=== PATIENT | female | born 1990 | race Caucasian/White ===

== ENCOUNTER 2016-05-17 20:49 | Emergency (ER) | payer OTHER ==
[2016-05-17] MEDS ORDERED: ONDANSETRON 4MG/2ML VIAL (J2405) As Ordered ONE (22:18)
[2016-05-17] MEDS ORDERED: KETOROLAC 30 MG/ML VIAL (J1885) As Ordered ONE (22:18)
[2016-05-17 22:19] LABS: BASO % 0.4 % (0.0-1.0); EOS # 0.1 K/mm3 (0.0-0.50); EOS % 0.9 % (0.0-3.0); LARGE UNSTAINED CELL # 0.3 K/mm3 (0.0-0.4); LARGE UNSTAINED CELL % 2.3 % (0.0-4.0); LYMPH # 2.5 K/mm3 (1.5-6.5); LYMPH % 18.2 % (24.0-44.0); MEAN CORPUSCULAR HEMOGLOBIN 27.9 pg (27.0-33.0); MEAN CORPUSCULAR HGB CONC 33.8 g/dl (32.0-36.5); MEAN CORPUSCULAR VOLUME 82.8 fl (80.0-96.0); MONO # 0.6 K/mm3 (0.0-0.8); MONO % 4.5 % (0.0-5.0); NEUTROPHILS % 73.8 % (36.0-66.0); PLATELET COUNT, AUTOMATED 379 k/mm3 (150-450); RED CELL DISTRIBUTION WIDTH 12.9 % (11.5-14.5); WHITE BLOOD COUNT 13.6 K/mm3 (4.0-10.0)
[2016-05-17 22:47] LABS: ALBUMIN 3.8 GM/DL (3.2-5.2); ALKALINE PHOSPHATASE 120 U/L (45-117); ALT/SGPT 55 U/L (12-78); AMYLASE 98 U/L (25-115); ANION GAP 11 MEQ/L (8-16); AST/SGOT 73 U/L (15-37); BILIRUBIN,DIRECT 0.1 MG/DL (0.0-0.2); BILIRUBIN,TOTAL 0.5 MG/DL (0.2-1.0); BLOOD UREA NITROGEN 9 MG/DL (7-18); CALCIUM LEVEL 9.2 MG/DL (8.5-10.1); CARBON DIOXIDE LEVEL 24 MEQ/L (21-32); CHLORIDE LEVEL 107 MEQ/L (98-107); CREATININE FOR GFR 0.98 MG/DL (0.55-1.02); GLOMERULAR FILTRATION RATE > 60.0 (>60); GLUCOSE, FASTING 121 MG/DL (70-105); POTASSIUM SERUM 3.6 MEQ/L (3.5-5.1); SODIUM LEVEL 142 MEQ/L (136-145); TOTAL PROTEIN 7.6 GM/DL (6.4-8.2)
[2016-05-17] MEDS ORDERED: GASTROGRAFIN SOLUTION 30ML (Q9963) As Ordered ONE (22:55)
[2016-05-17 23:39] LABS: CONTROL LINE HCG INT CTR LINE PRESENT
[2016-05-18] MEDS ORDERED: ISOVUE-370 76% 100ML VIAL (Q9967) As Ordered ONE (00:22)
--- NOTE | 2016-05-18 01:30 | REPUSA ---
CLINICAL HISTORY: Abdominal pain. TECHNIQUE: Multiple axial, sagittal and coronal CT images were obtained through the abdomen and pelvi s after administration of oral and intravenous contrast material. COMMENTS: The liver is mildly enlarged with decreased attenuation without mass or defect. There is no intra or extrahepatic biliary ductal dilatation. The spleen is normal. The gallbladder is within normal limits . The pancreas is of normal contour and attenuation characteristics. There is no evidence of adrenal mass. 6 mm left renal nonobstructing calculus. Both kidneys demonstrate prompt and equal nephrograms. The kidneys are normal in size, shape and conf iguration. There is no evidence of renal or ureteral mass. No right renal or ureteral calculi are mireya ntified. There is no hydroureter or hydronephrosis. No evidence for appendicitis. There is no bowel wall thickening. No evidence for small or large disha l obstruction. There is no evidence of abdominal ascites or lymphadenopathy. Changes from prior gastr ic bypass surgery. There is no evidence of intrinsic or extrinsic bladder mass. There is no pelvic ascites or lymphadeno troy. Mild large bowel fecal stasis. Diffuse thickening of the wall of the bladder. Images of the lung bases show no evidence of pleural or parenchymal mass. There are no pleural effusi ons. The bony structures are free of lytic or blastic lesions. IMPRESSION: Mild large bowel fecal stasis. Prior gastric bypass surgery. Hepatomegaly with fatty liver infiltration. 6 mm left renal nonobstructing calculus. Diffuse thickening of the wall of the bladder. Underdistention versus mild cystitis. Thank you for your kind referral of this patient.
[2016-05-18] MEDS ORDERED: OXYCODONE/APAP 5MG/325MG(BULK) 1 TAB TAB As Ordered ONE (02:38)
--- NOTE | 2016-05-18 02:48 | EDDOCDS ---
Nurse's Notes [facility] Name: Nela Bearden Age: 26 yrs Sex: Female : 1990 Arrival Date: 05/17/2016 Time: 20:49 Bed 7 Private MD: NO PRIMARY PHYSICIAN, . Diagnosis: Upper abdominal pain, unspecified-with elevated lipase at 1405;Nausea with vomiting, unspecified;Calculus of kidney-left Presentation: 05/17 21:05 Presenting complaint: Patient states: "chest and abd pain" on and off since 1630 today. ttb Sharp pain radiates to mid back. Denies SOB. Adult Sepsis Screening: The patient does not have new or worsening altered mentation. Patient's respiratory rate is less than 22. Systolic blood pressure is greater than 100. Patient has a qSOFA score of 0- Negative Sepsis Screen. Suicide/Homicide risk assessment- the patient denies having any suicidal and/or homicidal ideations and does not present with any other emotional, behavioral or mental health complaints. Status: Patient is not a special services coordinator or dependent. Transition of care: patient was not received from another setting of care. 21:05 Acuity: CONOR Level 3 ttb 21:05 Method Of Arrival: Walkin/Carried/Asstd ttb Triage Assessment: 21:09 General: Appears in no apparent distress, well nourished, well groomed, Behavior is ttb appropriate for age, cooperative, pleasant. Pain: Location: mid abd/mid back Pain currently is 8 out of 10 on a pain scale. HIV screening NA for this visit Offered previously. Neurological: Level of Consciousness is awake, alert. EENT: Reports nasal congestion nasal discharge. Cardiovascular: Chest pain is denied. Respiratory: Airway is patent Respiratory effort is even, unlabored, Denies cough, shortness of breath. GI: Reports upper abd pain, nausea, vomiting. : Denies burning with urination, urinary frequency, urgency. Derm: Skin is normal. Injury Description: No known injury. 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 multiple vitamins daily (Last dose: 05/16/2016 20:00) 2. Tylenol 500 mg Oral tab as needed (Last dose: Unknown) 3. nyquil as needed (Last dose: 05/16/2016) 4. dayquil as needed (Last dose: 05/16/2016) 5. gas-ex as needed (Last dose: 05/17/2016 20:30) - PMHx: angioneurotic edema; Anxiety; Depression; - PSHx: right shoulder surgery; Gastric Bypass (October 23, 2015); - Social history: Smoking status: Patient states was never smoker of tobacco. Patient/guardian denies using alcohol, street drugs, No barriers to communication noted, The patient speaks fluent Burundian, Speaks appropriately for age. - Family history: Not pertinent. - : The pt / caregiver states he / she is not on anticoagulants. Home medication list is obtained from the patient. - Exposure Risk Screening:: None identified. Screenin/10 00:19 Screening information is obtained from the patient. Fall risk: No risks identified. af2 Assistance ADL's: requires no assistance with activities of daily living. Abuse/DV Screen: The patient / caregiver reports he/she is: not in a situation that causes fear, pain or injury. Nutritional screening: No deficits noted. Advance Directives: Currently, there is no health care proxy. home support is adequate. Assessment: 05/17 21:50 General: Appears distressed, Behavior is crying. General: Spoke to Bariatric surgeon at [facility] they Rec. that she go to [facility] for evaluation because that is where they did the surgery. Family members decided to bring her to [facility]. Pain: Location: epigastric area Pain currently is 10 out of 10 on a pain scale. Quality of pain is described as sharp, stabbing - worse pain of her life - has taken more than 15 Gas- X. Respiratory: Respiratory effort is even, labored, Respiratory pattern is regular. GI: Abdomen is obese, Bowel sounds hypoactive in right lower quadrant and left lower quadrant Abd is tender to palpation in right upper quadrant and left upper quadrant Reports normal BM. GI: Reports Pt reports that she had a normal amount of food today prior to onset of pain. Derm: Skin is normal. Injury Description: No known injury. 22:50 General: Appears in no apparent distress, Behavior is cooperative. Neurological: Level af2 of Consciousness is awake, alert. Respiratory: Airway is patent Respiratory effort is even, unlabored. Derm: Skin is normal. 05/18 00:16 General: Appears in no apparent distress, Behavior is cooperative. Neurological: Level af2 of Consciousness is awake, alert. Respiratory: Airway is patent Respiratory effort is even, unlabored. Derm: Skin is normal. 01:15 General: Appears in no apparent distress, Behavior is cooperative, pt requests nurse to af2 check piv, piv patent, dry, and intact. dressing change performed at pt request. . 02:22 General: Appears in no apparent distress, Behavior is cooperative. Neurological: Level af2 of Consciousness is awake, alert. Respiratory: Airway is patent Respiratory effort is even, unlabored. Derm: Skin is normal. Vital Signs: 05/17 20:52 BP 127 / 70; Pulse 106; Resp 20 S; Temp 96.2(T); Pulse Ox 96% on R/A; Weight 111.13 kg gr2 (R); Height 5 ft. 5 in. (165.10 cm) (R); Pain 8/10; 05/18 02:45 BP 116 / 68; Pulse 64; Resp 18 S; Temp 97.9(O); Pain 3/10; af2 05/17 20:52 Body Mass Index 40.77 (111.13 kg, 165.10 cm) gr2 Vitals: 05/17 20:52 Log In Time: May 17, 2016 at 20:52. gr2 ED Course: 20:51 Patient visited by Lloyd Ardon. gr2 20:51 Patient moved to Waiting gr2 20:52 NO PRIMARY PHYSICIAN, . is Private Physician. gr2 20:53 Patient visited by Lloyd Ardon. gr2 20:53 Patient moved to Pre RCE gr2 21:07 Triage Initiated ttb 21:30 Patient moved to Triage 3 ar3 21:56 Rita Lujan PA-C is PHCP. dt4 21:56 Wilmer Velazquez DO is Attending Physician. dt4 21:56 Patient visited by Rita Lujan PA-C. dt4 22:02 Cheli Rodriguez,YOMI is Primary Nurse. rs3 22:02 Patient moved to 7 rs3 22:16 Liver Profile Sent. kas2 22:16 Lipase Sent. kas2 22:16 CBC with Diff Sent. kas2 22:16 Basic Metabolic Profile Sent. kas2 22:16 Amylase Sent. kas2 22:16 CRP Sent. kas2 22:24 Patient visited by Deena Tao RN. kas2 22:24 Inserted saline lock: 20 gauge in left antecubital area and blood collected. The kas2 patient tolerated the procedure well. No procedures done that require assistance. 23:08 Patient visited by Cheli Rodriguez RN. af2 23:24 [facility] Payment Agreement was scanned into [employer] and attached to record. mpb 05/18 00:14 Patient visited by Cheli Rodriguez RN. af2 00:14 Patient visited by Monica Castillo, Crime Victim Specialist. jlm 00:21 Patient visited by Cheli Rodriguez RN. af2 01:23 Patient visited by Cheli Rodriguez RN. af2 01:26 Patient visited by Cheli Rodriguez RN. af2 01:43 CT ABD & PELVIS: IV and Oral Contrast Returned. EDMS 02:08 Nessa Johnson janitorial supervisor. ys2 02:23 Patient visited by Cheli Rodriguez RN. af2 02:45 Discontinued IV lock intact, bleeding controlled, pressure dressing applied, No af2 redness/swelling at site. 02:46 The patient / caregiver is instructed regarding the plan of care and ED course. af2 Administered Medications: 05/17 22:23 Drug: NS 0.9% 1000 ml [sodium chloride 0.9 % intravenous solution] Route: IV; Rate: kas2 bolus; Site: left antecubital; 22:24 Drug: Ondansetron 4 mg [ondansetron HCl 2 mg/mL intravenous solution (2 mL)] Route: kas2 IVP; Site: left antecubital; 22:24 Drug: ketorolac 30 mg [ketorolac 30 mg/mL (1 mL) injection solution (1 mL)] Route: IVP; kas2 Site: left antecubital; 23:00 Drug: Diatrizoate Meglumine & Sodium 10 ml [diatrizoate meglumine and diat.sodium 66 af2 %-10 % oral solution (10 mL)] Route: PO; 05/18 02:44 Drug: oxyCODONE-acetaminophen 4 pack 1 packets [oxycodone-acetaminophen 5 mg-325 mg af2 tablet (1 tabs)] {Co-Signature: nn1 (Freedom Valiente RN).} Route: PO; Point of Care Testing: Urine : 05/17 23:45 hCG Reading: Negative; Control Reading: Positive; [facility] Ranges: Order Results: Lab Order: Amylase; SPEC'M 05/17/16 22:08 Test: AMYLASE; Value: 98; Range: 25-115; Units: U/L; Status: F Lab Order: Basic Metabolic Profile; SPEC'M 05/17/16 22:08 Test: GLUCOSE, FASTING; Value: 121; Range: 70-105; Abnormal: Above high normal; Units: MG/DL; Status: F Test: BLOOD UREA NITROGEN; Value: 9; Range: 7-18; Units: MG/DL; Status: F Test: CREATININE FOR GFR; Value: 0.98; Range: 0.55-1.02; Units: MG/DL; Status: F Test: GLOMERULAR FILTRATION RATE; Value: > 60.0; Range: >60; Status: F Test: SODIUM LEVEL; Value: 142; Range: 136-145; Units: MEQ/L; Status: F Test: POTASSIUM SERUM; Value: 3.6; Range: 3.5-5.1; Units: MEQ/L; Status: F Test: CHLORIDE LEVEL; Value: 107; Range: 98-107; Units: MEQ/L; Status: F Test: CARBON DIOXIDE LEVEL; Value: 24; Range: 21-32; Units: MEQ/L; Status: F Test: ANION GAP; Value: 11; Range: 8-16; Units: MEQ/L; Status: F Test: CALCIUM LEVEL; Value: 9.2; Range: 8.5-10.1; Units: MG/DL; Status: F Test Note: ; Units are mL/min/1.73 m2 Chronic Kidney Disease Staging per NKF: Stage I & II GFR >=60 Normal to Mildly Decreased Stage III GFR 30-59 Moderately Decreased Stage IV GFR 15-29 Severely Decreased Stage V GFR <15 Very Little GFR Left ESRD GFR <15 on COMPLIANCE EXAMINER Lab Order: CBC with Diff; SPEC'M 05/17/16 22:08 Test: WHITE BLOOD COUNT; Value: 13.6; Range: 4.0-10.0; Abnormal: Above high normal; Units: K/mm3; Status: F Test: RED BLOOD COUNT; Value: 5.43; Range: 4.00-5.40; Abnormal: Above high normal; Units: M/mm3; Status: F Test: HEMOGLOBIN; Value: 15.2; Range: 12.0-16.0; Units: g/dl; Status: F Test: HEMATOCRIT; Value: 45.0; Range: 36.0-47.0; Units: %; Status: F Test: MEAN CORPUSCULAR VOLUME; Value: 82.8; Range: 80.0-96.0; Units: fl; Status: F Test: MEAN CORPUSCULAR HEMOGLOBIN; Value: 27.9; Range: 27.0-33.0; Units: pg; Status: F Test: MEAN CORPUSCULAR HGB CONC; Value: 33.8; Range: 32.0-36.5; Units: g/dl; Status: F Test: RED CELL DISTRIBUTION WIDTH; Value: 12.9; Range: 11.5-14.5; Units: %; Status: F Test: PLATELET COUNT, AUTOMATED; Value: 379; Range: 150-450; Units: k/mm3; Status: F Test: NEUTROPHILS %; Value: 73.8; Range: 36.0-66.0; Abnormal: Above high normal; Units: %; Status: F Test: LYMPH %; Value: 18.2; Range: 24.0-44.0; Abnormal: Below low normal; Units: %; Status: F Test: MONO %; Value: 4.5; Range: 0.0-5.0; Units: %; Status: F Test: EOS %; Value: 0.9; Range: 0.0-3.0; Units: %; Status: F Test: BASO %; Value: 0.4; Range: 0.0-1.0; Units: %; Status: F Test: LARGE UNSTAINED CELL %; Value: 2.3; Range: 0.0-4.0; Units: %; Status: F Test: NEUTROPHILS #; Value: 10.0; Range: 1.8-7.7; Abnormal: Above high normal; Units: K/mm3; Status: F Test: LYMPH #; Value: 2.5; Range: 1.5-6.5; Units: K/mm3; Status: F Test: MONO #; Value: 0.6; Range: 0.0-0.8; Units: K/mm3; Status: F Test: EOS #; Value: 0.1; Range: 0.0-0.50; Units: K/mm3; Status: F Test: BASO #; Value: 0.0; Range: 0.0-0.2; Units: K/mm3; Status: F Test: LARGE UNSTAINED CELL #; Value: 0.3; Range: 0.0-0.4; Units: K/mm3; Status: F Lab Order: Lipase; SPEC' 05/17/16 22:08 Test: LIPASE; Value: 1405; Range: 73-393; Abnormal: Above high normal; Units: U/L; Status: F Lab Order: Liver Profile; SPEC'M 05/17/16 22:08 Test: AST/SGOT; Value: 73; Range: 15-37; Abnormal: Above high normal; Units: U/L; Status: F Test: ALT/SGPT; Value: 55; Range: 12-78; Units: U/L; Status: F Test: ALKALINE PHOSPHATASE; Value: 120; Range: 45-117; Abnormal: Above high normal; Units: U/L; Status: F Test: BILIRUBIN,TOTAL; Value: 0.5; Range: 0.2-1.0; Units: MG/DL; Status: F Test: BILIRUBIN,DIRECT; Value: 0.1; Range: 0.0-0.2; Units: MG/DL; Status: F Test: TOTAL PROTEIN; Value: 7.6; Range: 6.4-8.2; Units: GM/DL; Status: F Test: ALBUMIN; Value: 3.8; Range: 3.2-5.2; Units: GM/DL; Status: F Test: ALBUMIN/GLOBULIN RATIO; Value: 1.00; Range: 1.00-1.93; Status: F Lab Order: Urinalysis; SPEC'M 05/17/16 23:31 Test: APPEARANCE, URINE; Value: CLOUDY; Range: CLEAR; Abnormal: Above high normal; Status: F Test: COLOR, URINE; Value: CHELI; Range: YELLOW; Status: F Test: PH,URINE; Value: 5.0; Range: 5.0-9.0; Units: UNITS; Status: F Test: SPECIFIC GRAVITY URINE AUTO; Value: 1.028; Range: 1.002-1.035; Status: F Test: PROTEIN, URINE AUTO; Value: 1+; Range: NEGATIVE; Abnormal: Above high normal; Units: mg/dL; Status: F Test: GLUCOSE, URINE (UA) AUTO; Value: NEGATIVE; Range: NEGATIVE; Units: mg/dL; Status: F Test: KETONE, URINE AUTO; Value: 1+; Range: NEGATIVE; Abnormal: Above high normal; Units: mg/dL; Status: F Test: UROBILINOGEN, URINE AUTO; Value: 2.0; Range: 0.0-2.0; Abnormal: Above high normal; Units: mg/dL; Status: F Test: BILIRUBIN, URINE AUTO; Value: NEGATIVE; Range: NEGATIVE; Status: F Test: NITRITE, URINE AUTO; Value: NEGATIVE; Range: NEGATIVE; Status: F Test: LEUKOCYTE ESTERASE, URINE AUTO; Value: NEGATIVE; Range: NEGATIVE; Status: F Test: BLOOD, URINE BLOOD; Value: NEGATIVE; Range: NEGATIVE; Status: F Test: WBC, URINE AUTO; Value: 4; Range: 0-3; Abnormal: Above high normal; Units: /HPF; Status: F Test: RBC, URINE AUTO; Value: 2; Range: 0-3; Units: /HPF; Status: F Test: BACTERIA, URINE AUTO; Value: 1+; Range: NEGATIVE; Abnormal: Above high normal; Status: F Test: SQUAMOUS EPITHELIAL CELL UR AU; Value: 9; Range: 0-6; Units: /HPF; Status: F Test: MUCUS, URINE; Value: LARGE; Range: NEGATIVE; Status: F Test: HYALINE CAST, URINE AUTO; Value: 0; Range: 0-1; Units: /LPF; Status: F Lab Order: CRP; SPEC'M 05/17/16 22:08 Test: C REACTIVE PROTEIN QUANTITATIV; Value: 0.94; Range: 0.00-0.30; Abnormal: Above high normal; Units: MG/DL; Status: F Lab Order: HCG, QUALITATIVE; SPEC'M 05/17/16 22:08 Test: HCG, SERUM QUALITATIVE; Value: NEGATIVE; Range: NEGATIVE; Status: F Radiology Order: CT ABD & PELVIS: IV and Oral Contrast Test: CT ABD & PELVIS: IV and Oral Contrast REASON FOR EXAMINATION: RUQ, LUQ, EPIGASTRIC PAIN; ; CLINICAL HISTORY: Abdominal pain.; TECHNIQUE: Multiple axial, sagittal and coronal CT images were obtained through the abdomen and pelvi; s after administration of oral and intravenous contrast material.; COMMENTS:; The liver is mildly enlarged with decreased attenuation without mass or defect. There is no intra or; extrahepatic biliary ductal dilatation. The spleen is normal. The gallbladder is within normal limits; . The pancreas is of normal contour and attenuation characteristics. There is no evidence of adrenal; mass.; 6 mm left renal nonobstructing calculus.; Both kidneys demonstrate prompt and equal nephrograms. The kidneys are normal in size, shape and conf; iguration. There is no evidence of renal or ureteral mass. No right renal or ureteral calculi are mireya; ntified. There is no hydroureter or hydronephrosis.; No evidence for appendicitis. There is no bowel wall thickening. No evidence for small or large disha; l obstruction. There is no evidence of abdominal ascites or lymphadenopathy. Changes from prior gastr; ic bypass surgery.; There is no evidence of intrinsic or extrinsic bladder mass. There is no pelvic ascites or lymphadeno; troy. Mild large bowel fecal stasis. Diffuse thickening of the wall of the bladder.; Images of the lung bases show no evidence of pleural or parenchymal mass. There are no pleural effusi; ons.; The bony structures are free of lytic or blastic lesions.; IMPRESSION:; Mild large bowel fecal stasis.; Prior gastric bypass surgery.; Hepatomegaly with fatty liver infiltration.; 6 mm left renal nonobstructing calculus.; Diffuse thickening of the wall of the bladder. Underdistention versus mild cystitis.; Thank you for your kind referral of this patient.; ; Outcome: 05/18 02:19 Discharge ordered by Provider. dt4 02:46 Discharge Assessment: Patient awake, alert and oriented x 3. No cognitive and/or af2 functional deficits noted. Patient verbalized understanding of disposition instructions. patient administered narcotics - yes. Pt provided with safe discharge. The following High Risk Discharge criteria are identified: None. Discharged to home ambulatory, with family. Condition: stable. Discharge instructions given to patient, Instructed on discharge instructions, follow up and referral plans. medication usage, no driving heavy equipment, no drinking with medication, Demonstrated understanding of instructions, medications, Pt was receptive of discharge instructions/ teaching. CT Study completed. Property :Personal belongings accompany Pt. 02:46 Patient left the ED. af2 Signatures: Dispatcher [employer] EDKelli JamesRN RN lf1 Ashlie LockhartRN RN rs3 Leda Neville, INDUSTRIAL CAFETERIA MANAGER INDUSTRIAL CAFETERIA MANAGER ar3 Sita Rene RN RN ttb Lloyd Ardon gr2 Monica Castillo, Crime Victim Specialist Unit Rita De Souza PA-C PAMaulik dt4 Cheli RodriguezRN RN af2 Nessa Johnson 2 Dav Martin, Reg Reg Deena MccauleyRN RN kas2 Freedom Valiente RN nn1 Corrections: (The following items were deleted from the chart) 00:14 00:11 Urine : hCG=Negative, Control=Positive. pepe cantu MTDD
--- NOTE | 2016-05-18 02:49 | EDDOCDS ---
Physician Documentation [facility] Name: Nela Bearden Age: 26 yrs Sex: Female : 1990 Arrival Date: 05/17/2016 Time: 20:49 Bed 7 Private MD: NO PRIMARY PHYSICIAN, . Disposition: 05/18/16 02:19 Discharged to Home/Self Care. Impression: Upper abdominal pain, unspecified - with elevated lipase at 1405, Nausea with vomiting, unspecified, Calculus of kidney - left. - Condition is Stable. - Discharge Instructions: Abdominal Pain, Adult, Clear Liquid Diet, Nausea and Vomiting, Acute Pancreatitis, [id number]. - Prescriptions for Percocet 5- 325 mg Oral Tablet - take 1 tablet by ORAL route every 6 hours As needed MDD: 4 tabs; 15 tablet. ZOFRAN ODT 4 mg Oral - dissolve 1 tablet by ORAL route 3-4 times daily As needed do not chew, do not swallow whole; 20 tablet. - Medication Reconciliation, Local Pharmacy Hours form. - Follow up: Emergency Department; When: As needed; Reason: Worsening of conditions. Follow up: Private Physician; When: 2 - 3 days; Reason: Wound/Symptom Recheck, Recheck today's complaints, Continuance of care. - Problem is new. - Symptoms have improved. - Notes: PLEASE RETURN TO THE HOSPITAL ON TUESDAY OR TUESDAY TO HAVE YOUR LABS DRAWN AGAIN. GO TO THE OUTPATIENT LAB WITH THE LAB SLIP TO HAVE THESE REDRAWN. ANY WORSENING OF SYMPTOMS, PLEASE RETURN TO THE ER. CLEAR LIQUID DIET FOR THE NEXT TWO DAYS. Historical: - Allergies: NSAIDS - gastric bypass; - Home Meds: 1. multiple vitamins daily (Last dose: 05/16/2016 20:00) 2. Tylenol 500 mg Oral tab as needed (Last dose: Unknown) 3. nyquil as needed (Last dose: 05/16/2016) 4. dayquil as needed (Last dose: 05/16/2016) 5. gas-ex as needed (Last dose: 05/17/2016 20:30) - PMHx: angioneurotic edema; Anxiety; Depression; - PSHx: right shoulder surgery; Gastric Bypass (October 23, 2015); - Social history: Smoking status: Patient states was never smoker of tobacco. Patient/guardian denies using alcohol, street drugs, No barriers to communication noted, The patient speaks fluent Greek, Speaks appropriately for age. - Family history: Not pertinent. - : The pt / caregiver states he / she is not on anticoagulants. Home medication list is obtained from the patient. - Exposure Risk Screening:: None identified. PRODUCTION EDITOR: 05/17 21:09 LMP 04/16/2016 ttb Vital Signs: 20:52 BP 127 / 70; Pulse 106; Resp 20 S; Temp 96.2(T); Pulse Ox 96% on R/A; Weight 111.13 kg gr2 / 245 lbs (R); Height 5 ft. 5 in. (165.10 cm) (R); Pain 12/16; 05/18 02:45 BP 116 / 68; Pulse 64; Resp 18 S; Temp 97.9(O); Pain 3; af2 05/17 20:52 Body Mass Index 40.77 (111.13 kg, 165.10 cm) gr2 MDM: 05/17 22:04 NS 0.9% 1000 ml IV at bolus once ordered. dt4 22:04 Ondansetron 4 mg IVP once ordered. dt4 22:04 ketorolac 30 mg IVP once ordered. dt4 22:04 IV Saline Lock ordered. dt4 22:04 Undress patient appropriately for examination ordered. dt4 22:05 Amylase Ordered. EDMS 22:05 Basic Metabolic Profile Ordered. EDMS 22:05 CBC with Diff Ordered. EDMS 22:05 Lipase Ordered. EDMS 22:05 Liver Profile Ordered. EDMS 22:05 Urinalysis Ordered. EDMS 22:05 CRP Ordered. EDMS 22:06 Urine Culture Ordered. EDMS 22:06 CT ABD & PELVIS: IV and Oral Contrast Ordered. EDMS 22:06 NOTHING BY MOUTH+DIET ordered. EDMS 23:00 Diatrizoate Meglumine & Sodium Liquid 10 ml PO once; mix in 290cc of water; 1st cup at af2 2300 and 2nd cup at 2330 ordered. 23:13 Financial registration complete. [facility] 23:24 [facility] [place] Agreement was scanned into [employer] and attached to record. mpb 23:28 Basic Metabolic Profile Reviewed. dt4 23:28 CBC with Diff Reviewed. dt4 23:28 Lipase Reviewed. dt4 23:28 Liver Profile Reviewed. dt4 23:28 CRP Reviewed. dt4 23:28 Amylase Reviewed. dt4 05/18 01:54 Basic Metabolic Profile Reviewed. dt4 :54 Lipase Reviewed. dt08 07:54 Liver Profile Reviewed. dt08 07:54 Urinalysis Reviewed. dt08 07:54 CRP Reviewed. dt08 07:54 Amylase Reviewed. dt08 07:54 HCG, QUALITATIVE Reviewed. dt08 07:54 CT ABD & PELVIS: IV and Oral Contrast Reviewed. dt4 02:06 Fluid Challenge ordered. dt4 02:06 oxyCODONE-acetaminophen 4 pack 5 mg-325 mg 1 packets PO once; Dispense with pt, take as dt4 per instruction on package ordered. Point of Care Testing: Urine : 05/17 23:45 hCG Reading: Negative; Control Reading: Positive; jlm Ranges: Administered Medications: 22:23 Drug: NS 0.9% 1000 ml [sodium chloride 0.9 % intravenous solution] Route: IV; Rate: kas2 bolus; Site: left antecubital; 22:24 Drug: Ondansetron 4 mg [ondansetron HCl 2 mg/mL intravenous solution (2 mL)] Route: kas2 IVP; Site: left antecubital; 22:24 Drug: ketorolac 30 mg [ketorolac 30 mg/mL (1 mL) injection solution (1 mL)] Route: IVP; kas2 Site: left antecubital; 23:00 Drug: Diatrizoate Meglumine & Sodium 10 ml [diatrizoate meglumine and diat.sodium 66 af2 %-10 % oral solution (10 mL)] Route: PO; 05/18 02:44 Drug: oxyCODONE-acetaminophen 4 pack 1 packets [oxycodone-acetaminophen 5 mg-325 mg af2 tablet (1 tabs)] {Co-Signature: nn1 (Freedom Valiente RN).} Route: PO; Signatures: Dispatcher [employer] Sita Albarado RN RN melinab Rita Lujan PA-C PA-C dt4 Hallie Cormier Amber, RN RN af2 Dav Martin, Deena Cedeno RN kas2 Freedom Valiente RN nn1 The chart was reviewed and I authenticate all verbal orders and agree with the evaluation and treatment provided.Corrections: (The following items were deleted from the chart) 05/17 23:28 22:05 UCG by Nursing ordered. dt4 dt4 : 23:29 HCG, QUALITATIVE+LAB ordered. EDMS EDMS Attachments: 23:24 COUNTS INCLUDE 234 BEDS AT THE [facility] Payment Agreement mpb MTDD
--- NOTE | 2016-05-20 03:48 | EDDOCDS ---
Physician Documentation [facility] Name: Nela Bearden Age: 26 yrs Sex: Female : 1990 Arrival Date: 05/17/2016 Time: 20:49 Bed 7 Private MD: NO PRIMARY PHYSICIAN, . Disposition: 05/18/16 02:19 Discharged to Home/Self Care. Impression: Upper abdominal pain, unspecified - with elevated lipase at 1405, Nausea with vomiting, unspecified, Calculus of kidney - left. - Condition is Stable. - Discharge Instructions: Abdominal Pain, Adult, Clear Liquid Diet, Nausea and Vomiting, Acute Pancreatitis, [id number]. - Prescriptions for Percocet 5- 325 mg Oral Tablet - take 1 tablet by ORAL route every 6 hours As needed MDD: 4 tabs; 15 tablet. ZOFRAN ODT 4 mg Oral - dissolve 1 tablet by ORAL route 3-4 times daily As needed do not chew, do not swallow whole; 20 tablet. - Medication Reconciliation, Local Pharmacy Hours form. - Follow up: Emergency Department; When: As needed; Reason: Worsening of conditions. Follow up: Private Physician; When: 2 - 3 days; Reason: Wound/Symptom Recheck, Recheck today's complaints, Continuance of care. - Problem is new. - Symptoms have improved. - Notes: PLEASE RETURN TO THE HOSPITAL ON TUESDAY OR TUESDAY TO HAVE YOUR LABS DRAWN AGAIN. GO TO THE OUTPATIENT LAB WITH THE LAB SLIP TO HAVE THESE REDRAWN. ANY WORSENING OF SYMPTOMS, PLEASE RETURN TO THE ER. CLEAR LIQUID DIET FOR THE NEXT TWO DAYS. Historical: - Allergies: NSAIDS - gastric bypass; - Home Meds: 1. multiple vitamins daily (Last dose: 05/16/2016 20:00) 2. Tylenol 500 mg Oral tab as needed (Last dose: Unknown) 3. nyquil as needed (Last dose: 05/16/2016) 4. dayquil as needed (Last dose: 05/16/2016) 5. gas-ex as needed (Last dose: 05/17/2016 20:30) - PMHx: angioneurotic edema; Anxiety; Depression; - PSHx: right shoulder surgery; Gastric Bypass (October 23, 2015); - Social history: Smoking status: Patient states was never smoker of tobacco. Patient/guardian denies using alcohol, street drugs, No barriers to communication noted, The patient speaks fluent Turkmen, Speaks appropriately for age. - Family history: Not pertinent. - : The pt / caregiver states he / she is not on anticoagulants. Home medication list is obtained from the patient. - Exposure Risk Screening:: None identified. 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 5 in. (165.10 cm) (R); Pain 12/16; 05/18 02:45 BP 116 / 68; Pulse 64; Resp 18 S; Temp 97.9(O); Pain 3; af2 05/17 20:52 Body Mass Index 40.77 (111.13 kg, 165.10 cm) gr2 MDM: 05/17 22:04 NS 0.9% 1000 ml IV at bolus once ordered. dt4 22:04 Ondansetron 4 mg IVP once ordered. dt4 22:04 ketorolac 30 mg IVP once ordered. dt4 22:04 IV Saline Lock ordered. dt4 22:04 Undress patient appropriately for examination ordered. dt4 22:05 Amylase Ordered. EDMS 22:05 Basic Metabolic Profile Ordered. EDMS 22:05 CBC with Diff Ordered. EDMS 22:05 Lipase Ordered. EDMS 22:05 Liver Profile Ordered. EDMS 22:05 Urinalysis Ordered. EDMS 22:05 CRP Ordered. EDMS 22:06 Urine Culture Ordered. EDMS 22:06 CT ABD & PELVIS: IV and Oral Contrast Ordered. EDMS 22:06 NOTHING BY MOUTH+DIET ordered. EDMS 23:00 Diatrizoate Meglumine & Sodium Liquid 10 ml PO once; mix in 290cc of water; 1st cup at af2 2300 and 2nd cup at 2330 ordered. 23:13 Financial registration complete. [facility] 23:24 [facility] Payment Agreement was scanned into [employer] and attached to record. mpb 23:28 Basic Metabolic Profile Reviewed. dt4 23:28 CBC with Diff Reviewed. dt4 23:28 Lipase Reviewed. dt4 23:28 Liver Profile Reviewed. dt4 23:28 CRP Reviewed. dt4 23:28 Amylase Reviewed. dt4 05/18 01:54 Basic Metabolic Profile Reviewed. :54 Lipase Reviewed. :54 Liver Profile Reviewed. :54 Urinalysis Reviewed. :54 CRP Reviewed. :54 Amylase Reviewed. dt08 07:54 HCG, QUALITATIVE Reviewed. 01:54 CT ABD & PELVIS: IV and Oral Contrast Reviewed. dt4 02:06 Fluid Challenge ordered. dt4 02:06 oxyCODONE-acetaminophen 4 pack 5 mg-325 mg 1 packets PO once; Dispense with pt, take as dt4 per instruction on package ordered. 07:57 T-Sheet-- Draft Copy was scanned into [employer] and attached to record. 10:08 Radiology Report was scanned into [employer] and attached to record. Point of Care Testing: Urine : 05/17 23:45 hCG Reading: Negative; Control Reading: Positive; jlm Ranges: Administered Medications: 22:23 Drug: NS 0.9% 1000 ml [sodium chloride 0.9 % intravenous solution] Route: IV; Rate: kas2 bolus; Site: left antecubital; 22:24 Drug: Ondansetron 4 mg [ondansetron HCl 2 mg/mL intravenous solution (2 mL)] Route: kas2 IVP; Site: left antecubital; 22:24 Drug: ketorolac 30 mg [ketorolac 30 mg/mL (1 mL) injection solution (1 mL)] Route: IVP; kas2 Site: left antecubital; 23:00 Drug: Diatrizoate Meglumine & Sodium 10 ml [diatrizoate meglumine and diat.sodium 66 af2 %-10 % oral solution (10 mL)] Route: PO; 05/18 02:44 Drug: oxyCODONE-acetaminophen 4 pack 1 packets [oxycodone-acetaminophen 5 mg-325 mg af2 tablet (1 tabs)] {Co-Signature: nn1 (Freedom Valiente RN).} Route: PO; Signatures: Dispatcher [employer] EDMS Kelsie Shah, Reg Reg gb Sita Rene RN RN ttb Rita Lujan PA-C PANimaC dt4 Hallie Cormier AmberRN RN af2 Dav Martin, Reg Reg mpb Deena Tao RN kas2 Freedom Valiente RN nn1 The chart was reviewed and I authenticate all verbal orders and agree with the evaluation and treatment provided.Corrections: (The following items were deleted from the chart) 05/17 23:28 22:05 UCG by Nursing ordered. dt4 dt4 23:31 23:29 HCG, QUALITATIVE+LAB ordered. EDMS EDMS Attachments: 23:24 [facility] Payment Agreement mp 05/18 07:57 T-Sheet-- Draft Copy gb Chart Complete MTDD
--- NOTE | 2016-05-20 03:48 | EDDOCDS ---
Nurse's Notes [facility] Name: Nela Bearden Age: 26 yrs Sex: Female : 1990 Arrival Date: 05/17/2016 Time: 20:49 Bed 7 Private MD: NO PRIMARY PHYSICIAN, . Diagnosis: Upper abdominal pain, unspecified-with elevated lipase at 1405;Nausea with vomiting, unspecified;Calculus of kidney-left Presentation: 05/17 21:05 Presenting complaint: Patient states: "chest and abd pain" on and off since 1630 today. ttb Sharp pain radiates to mid back. Denies SOB. Adult Sepsis Screening: The patient does not have new or worsening altered mentation. Patient's respiratory rate is less than 22. Systolic blood pressure is greater than 100. Patient has a qSOFA score of 0- Negative Sepsis Screen. Suicide/Homicide risk assessment- the patient denies having any suicidal and/or homicidal ideations and does not present with any other emotional, behavioral or mental health complaints. Status: Patient is not a service cashier or dependent. Transition of care: patient was not received from another setting of care. 21:05 Acuity: CONOR Level 3 ttb 21:05 Method Of Arrival: Walkin/Carried/Asstd ttb Triage Assessment: 21:09 General: Appears in no apparent distress, well nourished, well groomed, Behavior is ttb appropriate for age, cooperative, pleasant. Pain: Location: mid abd/mid back Pain currently is 8 out of 10 on a pain scale. HIV screening NA for this visit Offered previously. Neurological: Level of Consciousness is awake, alert. EENT: Reports nasal congestion nasal discharge. Cardiovascular: Chest pain is denied. Respiratory: Airway is patent Respiratory effort is even, unlabored, Denies cough, shortness of breath. GI: Reports upper abd pain, nausea, vomiting. : Denies burning with urination, urinary frequency, urgency. Derm: Skin is normal. Injury Description: No known injury. 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 multiple vitamins daily (Last dose: 05/16/2016 20:00) 2. Tylenol 500 mg Oral tab as needed (Last dose: Unknown) 3. nyquil as needed (Last dose: 05/16/2016) 4. dayquil as needed (Last dose: 05/16/2016) 5. gas-ex as needed (Last dose: 05/17/2016 20:30) - PMHx: angioneurotic edema; Anxiety; Depression; - PSHx: right shoulder surgery; Gastric Bypass (October 23, 2015); - Social history: Smoking status: Patient states was never smoker of tobacco. Patient/guardian denies using alcohol, street drugs, No barriers to communication noted, The patient speaks fluent Cape Verdean, Speaks appropriately for age. - Family history: Not pertinent. - : The pt / caregiver states he / she is not on anticoagulants. Home medication list is obtained from the patient. - Exposure Risk Screening:: None identified. Screenin/10 00:19 Screening information is obtained from the patient. Fall risk: No risks identified. af2 Assistance ADL's: requires no assistance with activities of daily living. Abuse/DV Screen: The patient / caregiver reports he/she is: not in a situation that causes fear, pain or injury. Nutritional screening: No deficits noted. Advance Directives: Currently, there is no health care proxy. home support is adequate. Assessment: 05/17 21:50 General: Appears distressed, Behavior is crying. General: Spoke to Bariatric surgeon at [facility] they Rec. that she go to [facility] for evaluation because that is where they did the surgery. Family members decided to bring her to [facility]. Pain: Location: epigastric area Pain currently is 10 out of 10 on a pain scale. Quality of pain is described as sharp, stabbing - worse pain of her life - has taken more than 15 Gas- X. Respiratory: Respiratory effort is even, labored, Respiratory pattern is regular. GI: Abdomen is obese, Bowel sounds hypoactive in right lower quadrant and left lower quadrant Abd is tender to palpation in right upper quadrant and left upper quadrant Reports normal BM. GI: Reports Pt reports that she had a normal amount of food today prior to onset of pain. Derm: Skin is normal. Injury Description: No known injury. 22:50 General: Appears in no apparent distress, Behavior is cooperative. Neurological: Level af2 of Consciousness is awake, alert. Respiratory: Airway is patent Respiratory effort is even, unlabored. Derm: Skin is normal. 05/18 00:16 General: Appears in no apparent distress, Behavior is cooperative. Neurological: Level af2 of Consciousness is awake, alert. Respiratory: Airway is patent Respiratory effort is even, unlabored. Derm: Skin is normal. 01:15 General: Appears in no apparent distress, Behavior is cooperative, pt requests nurse to af2 check piv, piv patent, dry, and intact. dressing change performed at pt request. . 02:22 General: Appears in no apparent distress, Behavior is cooperative. Neurological: Level af2 of Consciousness is awake, alert. Respiratory: Airway is patent Respiratory effort is even, unlabored. Derm: Skin is normal. Vital Signs: 05/17 20:52 BP 127 / 70; Pulse 106; Resp 20 S; Temp 96.2(T); Pulse Ox 96% on R/A; Weight 111.13 kg gr2 (R); Height 5 ft. 5 in. (165.10 cm) (R); Pain 8/10; 05/18 02:45 BP 116 / 68; Pulse 64; Resp 18 S; Temp 97.9(O); Pain 3/10; af2 05/17 20:52 Body Mass Index 40.77 (111.13 kg, 165.10 cm) gr2 Vitals: 05/17 20:52 Log In Time: May 17, 2016 at 20:52. gr2 ED Course: 20:51 Patient visited by Lloyd Ardon. gr2 20:51 Patient moved to Waiting gr2 20:52 NO PRIMARY PHYSICIAN, . is Private Physician. gr2 20:53 Patient visited by Lloyd Ardon. gr2 20:53 Patient moved to Pre RCE gr2 21:07 Triage Initiated ttb 21:30 Patient moved to Triage 3 ar3 21:56 Rita Lujan PA-C is PHCP. dt4 21:56 Wilmer Velazquez DO is Attending Physician. dt4 21:56 Patient visited by Rita Lujan PA-C. dt4 22:02 Cheli Rodriguez,YOMI is Primary Nurse. rs3 22:02 Patient moved to 7 rs3 22:16 Liver Profile Sent. kas2 22:16 Lipase Sent. kas2 22:16 CBC with Diff Sent. kas2 22:16 Basic Metabolic Profile Sent. kas2 22:16 Amylase Sent. kas2 22:16 CRP Sent. kas2 22:24 Patient visited by Deena Tao RN. kas2 22:24 Inserted saline lock: 20 gauge in left antecubital area and blood collected. The kas2 patient tolerated the procedure well. No procedures done that require assistance. 23:08 Patient visited by Cheli Rodriguez RN. af2 23:24 [facility] Payment Agreement was scanned into [employer] and attached to record. mpb 05/18 00:14 Patient visited by Cheli Rodriguez RN. af2 00:14 Patient visited by Monica Castillo, Long Lines Operator. jlm 00:21 Patient visited by Cheli Rodriguez RN. af2 01:23 Patient visited by Cheli Rodriguez RN. af2 01:26 Patient visited by Cheli Rodriguez RN. af2 01:43 CT ABD & PELVIS: IV and Oral Contrast Returned. EDMS 02:08 Nessa Johnson swine nutritionist. ys2 02:23 Patient visited by Cheli Rodriguez RN. af2 02:45 Discontinued IV lock intact, bleeding controlled, pressure dressing applied, No af2 redness/swelling at site. 02:46 The patient / caregiver is instructed regarding the plan of care and ED course. af2 07:57 T-Sheet-- Draft Copy was scanned into [employer] and attached to record. gb 10:08 Radiology Report was scanned into [employer] and attached to record. gb Administered Medications: 05/17 22:23 Drug: NS 0.9% 1000 ml [sodium chloride 0.9 % intravenous solution] Route: IV; Rate: kas2 bolus; Site: left antecubital; 22:24 Drug: Ondansetron 4 mg [ondansetron HCl 2 mg/mL intravenous solution (2 mL)] Route: kas2 IVP; Site: left antecubital; 22:24 Drug: ketorolac 30 mg [ketorolac 30 mg/mL (1 mL) injection solution (1 mL)] Route: IVP; kas2 Site: left antecubital; 23:00 Drug: Diatrizoate Meglumine & Sodium 10 ml [diatrizoate meglumine and diat.sodium 66 af2 %-10 % oral solution (10 mL)] Route: PO; 05/18 02:44 Drug: oxyCODONE-acetaminophen 4 pack 1 packets [oxycodone-acetaminophen 5 mg-325 mg af2 tablet (1 tabs)] {Co-Signature: nn1 (Freedom Valiente RN).} Route: PO; Point of Care Testing: Urine : 05/17 23:45 hCG Reading: Negative; Control Reading: Positive; [facility] Ranges: Order Results: Lab Order: Amylase; SPEC'M 05/17/16 22:08 Test: AMYLASE; Value: 98; Range: 25-115; Units: U/L; Status: F Lab Order: Basic Metabolic Profile; SPEC'M 05/17/16 22:08 Test: GLUCOSE, FASTING; Value: 121; Range: 70-105; Abnormal: Above high normal; Units: MG/DL; Status: F Test: BLOOD UREA NITROGEN; Value: 9; Range: 7-18; Units: MG/DL; Status: F Test: CREATININE FOR GFR; Value: 0.98; Range: 0.55-1.02; Units: MG/DL; Status: F Test: GLOMERULAR FILTRATION RATE; Value: > 60.0; Range: >60; Status: F Test: SODIUM LEVEL; Value: 142; Range: 136-145; Units: MEQ/L; Status: F Test: POTASSIUM SERUM; Value: 3.6; Range: 3.5-5.1; Units: MEQ/L; Status: F Test: CHLORIDE LEVEL; Value: 107; Range: 98-107; Units: MEQ/L; Status: F Test: CARBON DIOXIDE LEVEL; Value: 24; Range: 21-32; Units: MEQ/L; Status: F Test: ANION GAP; Value: 11; Range: 8-16; Units: MEQ/L; Status: F Test: CALCIUM LEVEL; Value: 9.2; Range: 8.5-10.1; Units: MG/DL; Status: F Test Note: ; Units are mL/min/1.73 m2 Chronic Kidney Disease Staging per NKF: Stage I & II GFR >=60 Normal to Mildly Decreased Stage III GFR 30-59 Moderately Decreased Stage IV GFR 15-29 Severely Decreased Stage V GFR <15 Very Little GFR Left ESRD GFR <15 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 Lab Order: CBC with Diff; SPEC'M 05/17/16 22:08 Test: WHITE BLOOD COUNT; Value: 13.6; Range: 4.0-10.0; Abnormal: Above high normal; Units: K/mm3; Status: F Test: RED BLOOD COUNT; Value: 5.43; Range: 4.00-5.40; Abnormal: Above high normal; Units: M/mm3; Status: F Test: HEMOGLOBIN; Value: 15.2; Range: 12.0-16.0; Units: g/dl; Status: F Test: HEMATOCRIT; Value: 45.0; Range: 36.0-47.0; Units: %; Status: F Test: MEAN CORPUSCULAR VOLUME; Value: 82.8; Range: 80.0-96.0; Units: fl; Status: F Test: MEAN CORPUSCULAR HEMOGLOBIN; Value: 27.9; Range: 27.0-33.0; Units: pg; Status: F Test: MEAN CORPUSCULAR HGB CONC; Value: 33.8; Range: 32.0-36.5; Units: g/dl; Status: F Test: RED CELL DISTRIBUTION WIDTH; Value: 12.9; Range: 11.5-14.5; Units: %; Status: F Test: PLATELET COUNT, AUTOMATED; Value: 379; Range: 150-450; Units: k/mm3; Status: F Test: NEUTROPHILS %; Value: 73.8; Range: 36.0-66.0; Abnormal: Above high normal; Units: %; Status: F Test: LYMPH %; Value: 18.2; Range: 24.0-44.0; Abnormal: Below low normal; Units: %; Status: F Test: MONO %; Value: 4.5; Range: 0.0-5.0; Units: %; Status: F Test: EOS %; Value: 0.9; Range: 0.0-3.0; Units: %; Status: F Test: BASO %; Value: 0.4; Range: 0.0-1.0; Units: %; Status: F Test: LARGE UNSTAINED CELL %; Value: 2.3; Range: 0.0-4.0; Units: %; Status: F Test: NEUTROPHILS #; Value: 10.0; Range: 1.8-7.7; Abnormal: Above high normal; Units: K/mm3; Status: F Test: LYMPH #; Value: 2.5; Range: 1.5-6.5; Units: K/mm3; Status: F Test: MONO #; Value: 0.6; Range: 0.0-0.8; Units: K/mm3; Status: F Test: EOS #; Value: 0.1; Range: 0.0-0.50; Units: K/mm3; Status: F Test: BASO #; Value: 0.0; Range: 0.0-0.2; Units: K/mm3; Status: F Test: LARGE UNSTAINED CELL #; Value: 0.3; Range: 0.0-0.4; Units: K/mm3; Status: F Lab Order: Lipase; [facility]' 05/17/16 22:08 Test: LIPASE; Value: 1405; Range: 73-393; Abnormal: Above high normal; Units: U/L; Status: F Lab Order: Liver Profile; [facility] 05/17/16 22:08 Test: AST/SGOT; Value: 73; Range: 15-37; Abnormal: Above high normal; Units: U/L; Status: F Test: ALT/SGPT; Value: 55; Range: 12-78; Units: U/L; Status: F Test: ALKALINE PHOSPHATASE; Value: 120; Range: 45-117; Abnormal: Above high normal; Units: U/L; Status: F Test: BILIRUBIN,TOTAL; Value: 0.5; Range: 0.2-1.0; Units: MG/DL; Status: F Test: BILIRUBIN,DIRECT; Value: 0.1; Range: 0.0-0.2; Units: MG/DL; Status: F Test: TOTAL PROTEIN; Value: 7.6; Range: 6.4-8.2; Units: GM/DL; Status: F Test: ALBUMIN; Value: 3.8; Range: 3.2-5.2; Units: GM/DL; Status: F Test: ALBUMIN/GLOBULIN RATIO; Value: 1.00; Range: 1.00-1.93; Status: F Lab Order: Urinalysis; [facility] 05/17/16 23:31 Test: APPEARANCE, URINE; Value: CLOUDY; Range: CLEAR; Abnormal: Above high normal; Status: F Test: COLOR, URINE; Value: CHELI; Range: YELLOW; Status: F Test: PH,URINE; Value: 5.0; Range: 5.0-9.0; Units: UNITS; Status: F Test: SPECIFIC GRAVITY URINE AUTO; Value: 1.028; Range: 1.002-1.035; Status: F Test: PROTEIN, URINE AUTO; Value: 1+; Range: NEGATIVE; Abnormal: Above high normal; Units: mg/dL; Status: F Test: GLUCOSE, URINE (UA) AUTO; Value: NEGATIVE; Range: NEGATIVE; Units: mg/dL; Status: F Test: KETONE, URINE AUTO; Value: 1+; Range: NEGATIVE; Abnormal: Above high normal; Units: mg/dL; Status: F Test: UROBILINOGEN, URINE AUTO; Value: 2.0; Range: 0.0-2.0; Abnormal: Above high normal; Units: mg/dL; Status: F Test: BILIRUBIN, URINE AUTO; Value: NEGATIVE; Range: NEGATIVE; Status: F Test: NITRITE, URINE AUTO; Value: NEGATIVE; Range: NEGATIVE; Status: F Test: LEUKOCYTE ESTERASE, URINE AUTO; Value: NEGATIVE; Range: NEGATIVE; Status: F Test: BLOOD, URINE BLOOD; Value: NEGATIVE; Range: NEGATIVE; Status: F Test: WBC, URINE AUTO; Value: 4; Range: 0-3; Abnormal: Above high normal; Units: /HPF; Status: F Test: RBC, URINE AUTO; Value: 2; Range: 0-3; Units: /HPF; Status: F Test: BACTERIA, URINE AUTO; Value: 1+; Range: NEGATIVE; Abnormal: Above high normal; Status: F Test: SQUAMOUS EPITHELIAL CELL UR AU; Value: 9; Range: 0-6; Units: /HPF; Status: F Test: MUCUS, URINE; Value: LARGE; Range: NEGATIVE; Status: F Test: HYALINE CAST, URINE AUTO; Value: 0; Range: 0-1; Units: /LPF; Status: F Lab Order: Urine Culture; SPEC'M 05/17/16 23:31 Test: URINE CULTURE; Value: URINE CULTURE RESULT; Status: F Test: URINE CULTURE; Value: NO GROWTH CLINICAL SIGNIFICANCE 2 OR MORE ORGANISMS; Status: F Lab Order: CRP; SPEC'M 05/17/16 22:08 Test: C REACTIVE PROTEIN QUANTITATIV; Value: 0.94; Range: 0.00-0.30; Abnormal: Above high normal; Units: MG/DL; Status: F Lab Order: HCG, QUALITATIVE; SPEC'M 05/17/16 22:08 Test: HCG, SERUM QUALITATIVE; Value: NEGATIVE; Range: NEGATIVE; Status: F Radiology Order: CT ABD & PELVIS: IV and Oral Contrast Test: CT ABD & PELVIS: IV and Oral Contrast REASON FOR EXAMINATION: RUQ, LUQ, EPIGASTRIC PAIN; ; CLINICAL HISTORY: Abdominal pain.; TECHNIQUE: Multiple axial, sagittal and coronal CT images were obtained through the abdomen and pelvi; s after administration of oral and intravenous contrast material.; COMMENTS:; The liver is mildly enlarged with decreased attenuation without mass or defect. There is no intra or; extrahepatic biliary ductal dilatation. The spleen is normal. The gallbladder is within normal limits; . The pancreas is of normal contour and attenuation characteristics. There is no evidence of adrenal; mass.; 6 mm left renal nonobstructing calculus.; Both kidneys demonstrate prompt and equal nephrograms. The kidneys are normal in size, shape and conf; iguration. There is no evidence of renal or ureteral mass. No right renal or ureteral calculi are mireya; ntified. There is no hydroureter or hydronephrosis.; No evidence for appendicitis. There is no bowel wall thickening. No evidence for small or large disha; l obstruction. There is no evidence of abdominal ascites or lymphadenopathy. Changes from prior gastr; ic bypass surgery.; There is no evidence of intrinsic or extrinsic bladder mass. There is no pelvic ascites or lymphadeno; [place]. Mild large bowel fecal stasis. Diffuse thickening of the wall of the bladder.; Images of the lung bases show no evidence of pleural or parenchymal mass. There are no pleural effusi; ons.; The bony structures are free of lytic or blastic lesions.; IMPRESSION:; Mild large bowel fecal stasis.; Prior gastric bypass surgery.; Hepatomegaly with fatty liver infiltration.; 6 mm left renal nonobstructing calculus.; Diffuse thickening of the wall of the bladder. Underdistention versus mild cystitis.; Thank you for your kind referral of this patient.; ; Outcome: 05/18 02:19 Discharge ordered by Provider. dt4 02:46 Discharge Assessment: Patient awake, alert and oriented x 3. No cognitive and/or af2 functional deficits noted. Patient verbalized understanding of disposition instructions. patient administered narcotics - yes. Pt provided with safe discharge. The following High Risk Discharge criteria are identified: None. Discharged to home ambulatory, with family. Condition: stable. Discharge instructions given to patient, Instructed on discharge instructions, follow up and referral plans. medication usage, no driving heavy equipment, no drinking with medication, Demonstrated understanding of instructions, medications, Pt was receptive of discharge instructions/ teaching. CT Study completed. Property :Personal belongings accompany Pt. 02:46 Patient left the ED. af2 Signatures: Dispatcher [employer] EDMS Kelsie Shah, Reg Reg gb Kelli Loya,RN RN lf1 Ashlie Lockhart,RN RN rs3 Leda Neville, INFORMATION CONSULTANT INFORMATION CONSULTANT ar3 Sita Rene, RN RN ttb Lloyd Ardon gr2 Monica Castillo, Long Lines Operator Unit Rita De Souza, PA-C PA-C dt4 Cheli RodriguezRN RN af2 Nessa Johnson 2 Dav Martin, Reg Reg mpb Deena TaoRN RN kas2 Freedom Valiente RN nn1 Corrections: (The following items were deleted from the chart) 00:14 00:11 Urine : hCG=Negative, Control=Positive. pepe cantu Chart Complete MTDD
--- NOTE | 2016-05-20 03:48 | EDDOCDS ---
Physician Documentation [facility] Name: Nela Bearden Age: 26 yrs Sex: Female : 1990 Arrival Date: 05/17/2016 Time: 20:49 Bed 7 Private MD: NO PRIMARY PHYSICIAN, . Disposition: 05/18/16 02:19 Discharged to Home/Self Care. Impression: Upper abdominal pain, unspecified - with elevated lipase at 1405, Nausea with vomiting, unspecified, Calculus of kidney - left. - Condition is Stable. - Discharge Instructions: Abdominal Pain, Adult, Clear Liquid Diet, Nausea and Vomiting, Acute Pancreatitis, [id number]. - Prescriptions for Percocet 5- 325 mg Oral Tablet - take 1 tablet by ORAL route every 6 hours As needed MDD: 4 tabs; 15 tablet. ZOFRAN ODT 4 mg Oral - dissolve 1 tablet by ORAL route 3-4 times daily As needed do not chew, do not swallow whole; 20 tablet. - Medication Reconciliation, Local Pharmacy Hours form. - Follow up: Emergency Department; When: As needed; Reason: Worsening of conditions. Follow up: Private Physician; When: 2 - 3 days; Reason: Wound/Symptom Recheck, Recheck today's complaints, Continuance of care. - Problem is new. - Symptoms have improved. - Notes: PLEASE RETURN TO THE HOSPITAL ON TUESDAY OR TUESDAY TO HAVE YOUR LABS DRAWN AGAIN. GO TO THE OUTPATIENT LAB WITH THE LAB SLIP TO HAVE THESE REDRAWN. ANY WORSENING OF SYMPTOMS, PLEASE RETURN TO THE ER. CLEAR LIQUID DIET FOR THE NEXT TWO DAYS. Historical: - Allergies: NSAIDS - gastric bypass; - Home Meds: 1. multiple vitamins daily (Last dose: 05/16/2016 20:00) 2. Tylenol 500 mg Oral tab as needed (Last dose: Unknown) 3. nyquil as needed (Last dose: 05/16/2016) 4. dayquil as needed (Last dose: 05/16/2016) 5. gas-ex as needed (Last dose: 05/17/2016 20:30) - PMHx: angioneurotic edema; Anxiety; Depression; - PSHx: right shoulder surgery; Gastric Bypass (October 23, 2015); - Social history: Smoking status: Patient states was never smoker of tobacco. Patient/guardian denies using alcohol, street drugs, No barriers to communication noted, The patient speaks fluent Tajik, Speaks appropriately for age. - Family history: Not pertinent. - : The pt / caregiver states he / she is not on anticoagulants. Home medication list is obtained from the patient. - Exposure Risk Screening:: None identified. 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 5 in. (165.10 cm) (R); Pain 12/16; 05/18 02:45 BP 116 / 68; Pulse 64; Resp 18 S; Temp 97.9(O); Pain 3; af2 05/17 20:52 Body Mass Index 40.77 (111.13 kg, 165.10 cm) gr2 MDM: 05/17 22:04 NS 0.9% 1000 ml IV at bolus once ordered. dt4 22:04 Ondansetron 4 mg IVP once ordered. dt4 22:04 ketorolac 30 mg IVP once ordered. dt4 22:04 IV Saline Lock ordered. dt4 22:04 Undress patient appropriately for examination ordered. dt4 22:05 Amylase Ordered. EDMS 22:05 Basic Metabolic Profile Ordered. EDMS 22:05 CBC with Diff Ordered. EDMS 22:05 Lipase Ordered. EDMS 22:05 Liver Profile Ordered. EDMS 22:05 Urinalysis Ordered. EDMS 22:05 CRP Ordered. EDMS 22:06 Urine Culture Ordered. EDMS 22:06 CT ABD & PELVIS: IV and Oral Contrast Ordered. EDMS 22:06 NOTHING BY MOUTH+DIET ordered. EDMS 23:00 Diatrizoate Meglumine & Sodium Liquid 10 ml PO once; mix in 290cc of water; 1st cup at af2 2300 and 2nd cup at 2330 ordered. 23:13 Financial registration complete. [facility] 23:24 [facility] Payment Agreement was scanned into [employer] and attached to record. mpb 23:28 Basic Metabolic Profile Reviewed. dt4 23:28 CBC with Diff Reviewed. dt4 23:28 Lipase Reviewed. dt4 23:28 Liver Profile Reviewed. dt4 23:28 CRP Reviewed. dt4 23:28 Amylase Reviewed. dt4 05/18 01:54 Basic Metabolic Profile Reviewed. :54 Lipase Reviewed. :54 Liver Profile Reviewed. :54 Urinalysis Reviewed. :54 CRP Reviewed. :54 Amylase Reviewed. dt08 07:54 HCG, QUALITATIVE Reviewed. 01:54 CT ABD & PELVIS: IV and Oral Contrast Reviewed. dt4 02:06 Fluid Challenge ordered. dt4 02:06 oxyCODONE-acetaminophen 4 pack 5 mg-325 mg 1 packets PO once; Dispense with pt, take as dt4 per instruction on package ordered. 07:57 T-Sheet-- Draft Copy was scanned into [employer] and attached to record. 10:08 Radiology Report was scanned into [employer] and attached to record. Point of Care Testing: Urine : 05/17 23:45 hCG Reading: Negative; Control Reading: Positive; jlm Ranges: Administered Medications: 22:23 Drug: NS 0.9% 1000 ml [sodium chloride 0.9 % intravenous solution] Route: IV; Rate: kas2 bolus; Site: left antecubital; 22:24 Drug: Ondansetron 4 mg [ondansetron HCl 2 mg/mL intravenous solution (2 mL)] Route: kas2 IVP; Site: left antecubital; 22:24 Drug: ketorolac 30 mg [ketorolac 30 mg/mL (1 mL) injection solution (1 mL)] Route: IVP; kas2 Site: left antecubital; 23:00 Drug: Diatrizoate Meglumine & Sodium 10 ml [diatrizoate meglumine and diat.sodium 66 af2 %-10 % oral solution (10 mL)] Route: PO; 05/18 02:44 Drug: oxyCODONE-acetaminophen 4 pack 1 packets [oxycodone-acetaminophen 5 mg-325 mg af2 tablet (1 tabs)] {Co-Signature: nn1 (Freedom Valiente RN).} Route: PO; Signatures: Dispatcher [employer] EDMS Kelsie Shah, Reg Reg gb Sita Rene RN RN ttb Rita Lujan PA-C PANimaC dt4 Hallie Cormier AmberRN RN af2 Dav Martin, Reg Reg mpb Deena Tao RN kas2 Freedom Valiente RN nn1 The chart was reviewed and I authenticate all verbal orders and agree with the evaluation and treatment provided.Corrections: (The following items were deleted from the chart) 05/17 23:28 22:05 UCG by Nursing ordered. dt4 dt4 23:31 23:29 HCG, QUALITATIVE+LAB ordered. EDMS EDMS Attachments: 23:24 [facility] Payment Agreement mp 05/18 07:57 T-Sheet-- Draft Copy gb Chart Complete MTDD
== END 2016-05-18 02:46 | disposition home or self-care (01) ==
LOC: M ED 20:49
DX: E78.9 Disorder of lipoprotein metabolism, unspecified (principal); N20.0 Calculus of kidney; F32.9 Major depressive disorder, single episode, unspecified; F41.9 Anxiety disorder, unspecified; Z98.84 Bariatric surgery status; Z88.6 Allergy status to analgesic agent
CPT/HCPCS: 36415; 74177; 80048; 80076; 81001; 81025; 82150; 83690; 84703; 85025; 86140; 87086; 96374; 96375; 99284; J1885; J2405; Q9963; Q9967

== ENCOUNTER 2016-05-19 15:07 | Emergency (ER) | payer OTHER ==
[2016-05-19 16:10] LABS: BASO # 0.2 K/mm3 (0.0-0.2); BASO % 1.7 % (0.0-1.0); EOS # 0.2 K/mm3 (0.0-0.50); EOS % 2.5 % (0.0-3.0); LARGE UNSTAINED CELL # 0.1 K/mm3 (0.0-0.4); LARGE UNSTAINED CELL % 1.4 % (0.0-4.0); LYMPH % 19.1 % (24.0-44.0); MEAN CORPUSCULAR HGB CONC 33.2 g/dl (32.0-36.5); MEAN CORPUSCULAR VOLUME 81.4 fl (80.0-96.0); MONO # 0.4 K/mm3 (0.0-0.8); NEUTROPHILS % 71.3 % (36.0-66.0); PLATELET COUNT, AUTOMATED 340 k/mm3 (150-450); WHITE BLOOD COUNT 9.8 K/mm3 (4.0-10.0)
[2016-05-19 16:27] LABS: INR 0.92
[2016-05-19] MEDS ORDERED: ONDANSETRON 4MG/2ML VIAL (J2405) As Ordered ONE (16:34)
[2016-05-19] MEDS ORDERED: KETOROLAC 30 MG/ML VIAL (J1885) As Ordered ONE (16:34)
[2016-05-19 16:42] LABS: ALBUMIN 3.8 GM/DL (3.2-5.2); ALBUMIN/GLOBULIN RATIO 1.09 (1.00-1.93); ALKALINE PHOSPHATASE 124 U/L (45-117); ALT/SGPT 81 U/L (12-78); AMYLASE 86 U/L (25-115); ANION GAP 8 MEQ/L (8-16); AST/SGOT 46 U/L (15-37); BILIRUBIN,DIRECT 0.1 MG/DL (0.0-0.2); BILIRUBIN,TOTAL 0.4 MG/DL (0.2-1.0); BLOOD UREA NITROGEN 8 MG/DL (7-18); CALCIUM LEVEL 9.2 MG/DL (8.5-10.1); CARBON DIOXIDE LEVEL 28 MEQ/L (21-32); CHLORIDE LEVEL 107 MEQ/L (98-107); CREATININE FOR GFR 0.83 MG/DL (0.55-1.02); GLOMERULAR FILTRATION RATE > 60.0 (>60); GLUCOSE, FASTING 74 MG/DL (70-105); POTASSIUM SERUM 4.4 MEQ/L (3.5-5.1); SODIUM LEVEL 143 MEQ/L (136-145); TOTAL PROTEIN 7.3 GM/DL (6.4-8.2)
--- NOTE | 2016-05-19 18:26 | EDDOCDS ---
Nurse's Notes [facility] Name: Nela Bearden Age: 26 yrs Sex: Female : 1990 Arrival Date: 05/19/2016 Time: 15:07 Bed I7 29 Private MD: Jasper Morel Diagnosis: Acute pancreatitis;Abdominal and pelvic pain Presentation: 05/19 15:11 Presenting complaint: Patient states: mid abd pain started approx 30 min ago : pt seen ttb here Tuesday night for same pain and dc'd home. Nausea. Denies vomiting or changes. Adult Sepsis Screening: moderate vaginal bleeding. The patient does not have new or worsening altered mentation. Adult Sepsis Screening: Patient's respiratory rate is less than 22. Systolic blood pressure is less than or equal to 100 (1 point). Patient has a qSOFA score of 0- Negative Sepsis Screen. Suicide/Homicide risk assessment- the patient denies having any suicidal and/or homicidal ideations and does not present with any other emotional, behavioral or mental health complaints. Status: Patient is not a claims customer service representative or dependent. Transition of care: patient was not received from another setting of care. 15:11 Acuity: CONOR Level 3 ttb 15:11 Method Of Arrival: Walkin/Carried/Asstd ttb Triage Assessment: 15:13 General: Appears in no apparent distress, well nourished, well groomed, Behavior is ttb appropriate for age, cooperative, pleasant, restless. Pain: Location: mid upper abd 8-10/10. Pain: Pain radiates to mid back. HIV screening NA for this visit Offered previously. Neurological: Level of Consciousness is awake, alert. Cardiovascular: Chest pain is denied. Respiratory: No deficits noted. Airway is patent Denies cough, shortness of breath. GI: Reports upper abd pain, nausea, Denies bloating, constipation, cramping, diarrhea, vomiting. : Reports vaginal bleeding that is d/t menses (which pt states is normal) Denies burning with urination, urinary frequency, urgency. Derm: Skin is normal. 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 multiple vitamins daily (Last dose: 05/19/2016 08:00) 2. Percocet 5-325 mg Oral tab 1 tab every 4 hours for Pain (Last dose: 05/19/2016 03:00) - PMHx: angioneurotic edema; Anxiety; Depression; - PSHx: right shoulder surgery; Gastric Bypass (October 23, 2015); - Social history: Smoking status: Patient states was never smoker of tobacco. Patient/guardian denies using alcohol, street drugs, No barriers to communication noted, The patient speaks fluent Macanese, Speaks appropriately for age. - Family history: Not pertinent. - : The pt / caregiver states he / she is not on anticoagulants. Home medication list is obtained from the patient. - Exposure Risk Screening:: None identified. Screenin:21 Screening information is obtained from the patient. Fall risk: No risks identified. kc3 Assistance ADL's: requires no assistance with activities of daily living. Abuse/DV Screen: The patient / caregiver reports he/she is: not in a situation that causes fear, pain or injury. Nutritional screening: No deficits noted. Advance Directives: Currently, there is no health care proxy. home support is adequate. Assessment: 16:41 General: Appears in no apparent distress, comfortable, Behavior is appropriate for age, mlb1 cooperative. Pain: Location: epigastric area Pain currently is 4 out of 10 on a pain scale. GI: Abdomen is non- distended Bowel sounds present X 4 quads. Abd is soft X 4 quads Abd is tender to palpation in epigastric area Reports nausea. 17:30 General: Appears in no apparent distress, comfortable, Behavior is appropriate for age, kc3 cooperative. Neurological: Level of Consciousness is awake, alert, obeys commands, Oriented to person, place, time. GI: Reports epigastric pain. Derm: Skin is pink, warm & dry. 18:18 General: Appears in no apparent distress, comfortable, Behavior is appropriate for age, kc3 cooperative. Neurological: Level of Consciousness is awake, alert, obeys commands. GI: Reports epigastric pain. Derm: Skin is pink, warm & dry. 18:19 General: Pt's family member appears upset at discharge. Family member requesting name kc3 of provider pt seen by. Pt given discharge instructions. No distress noted to pt. . Vital Signs: 15:08 BP 144 / 81 RA Sitting (auto/lg); Pulse 87; Resp 18; Temp 96.5; Pulse Ox 100% on R/A; rs6 Weight 110.68 kg (R); Height 5 ft. 5 in. (165.10 cm) (R); Pain 10/10; 18:22 BP 123 / 82; Pulse 64; Resp 18; Temp 97.4; Pulse Ox 100% on R/A; Pain 4/10; kc3 15:08 Body Mass Index 40.60 (110.68 kg, 165.10 cm) rs6 Vitals: 15:08 Log In Time: May 19, 2016 at 15:08. rs6 ED Course: 15:08 Patient visited by Pat Rae PCA. rs6 15:08 Jasper Morel is Private Physician. rs6 15:08 Patient moved to Waiting rs6 15:09 Patient visited by Pat Rae PCA. rs6 15:10 Patient moved to Pre RCE rs6 15:12 Triage Initiated ttb 15:42 Patient moved to Triage 1 jf3 15:46 [facility] FNP [facility]. ke 15:46 Patient visited by Tanmay Tian FNP. ke 15:46 Patient visited by Tanmay Tian FNP. ke 16:05 Patient moved to 31 jf3 16:06 Inserted saline lock: 20 gauge in right antecubital area and blood collected. Labs mlb1 drawn. (by ED staff). Sent per order to lab. 16:06 Amylase Sent. mlb1 16:06 Basic Metabolic Profile Sent. mlb1 16:07 Patient visited by Dav العراقي, RN. mlb1 16:07 CBC with Diff Sent. mlb1 16:07 Lipase Sent. mlb1 16:07 Liver Profile Sent. mlb1 16:07 Prothrombin Time Profile\E\INR Sent. mlb1 16:07 No procedures done that require assistance. mlb1 16:21 Patient moved to I7 jrd 16:41 Patient visited by Lena Lee,YOMI. ck1 16:43 Patient visited by Dav العراقي, RN. mlb1 17:08 Patient moved to Ultrasound am17 17:20 [facility] Payment Agreement was scanned into [employer] and attached to record. gjb 17:24 Patient moved to I7 / am17 17:27 Patient visited by Tanmay Tian FNP. ke 18:05 Patient visited by Lena Lee RN. ck1 18:22 The patient / caregiver is instructed regarding the plan of care and ED course. kc3 Administered Medications: 16:42 Drug: NS 0.9% 1000 ml [sodium chloride 0.9 % injection solution] Route: IV; Rate: mlb1 bolus; Site: left antecubital; 16:43 Drug: Ondansetron 4 mg [ondansetron HCl 2 mg/mL intravenous solution (2 mL)] Route: mlb1 IVP; Site: left antecubital; 16:43 Drug: ketorolac 30 mg [ketorolac 30 mg/mL (1 mL) injection solution (1 mL)] Route: IVP; mlb1 Site: left antecubital; Order Results: Lab Order: Amylase; SPEC'M 05/19/16 15:58 Test: AMYLASE; Value: 86; Range: 25-115; Units: U/L; Status: F Lab Order: Basic Metabolic Profile; SPEC'M 05/19/16 15:58 Test: GLUCOSE, FASTING; Value: 74; Range: 70-105; Units: MG/DL; Status: F Test: BLOOD UREA NITROGEN; Value: 8; Range: 7-18; Units: MG/DL; Status: F Test: CREATININE FOR GFR; Value: 0.83; Range: 0.55-1.02; Units: MG/DL; Status: F Test: GLOMERULAR FILTRATION RATE; Value: > 60.0; Range: >60; Status: F Test: SODIUM LEVEL; Value: 143; Range: 136-145; Units: MEQ/L; Status: F Test: POTASSIUM SERUM; Value: 4.4; Range: 3.5-5.1; Abnormal: Delta; Units: MEQ/L; Status: F Test: CHLORIDE LEVEL; Value: 107; Range: 98-107; Units: MEQ/L; Status: F Test: CARBON DIOXIDE LEVEL; Value: 28; Range: 21-32; Units: MEQ/L; Status: F Test: ANION GAP; Value: 8; Range: 8-16; Units: MEQ/L; Status: F Test: CALCIUM LEVEL; Value: 9.2; Range: 8.5-10.1; Units: MG/DL; Status: F Test Note: ; Units are mL/min/1.73 m2 Chronic Kidney Disease Staging per NKF: Stage I & II GFR >=60 Normal to Mildly Decreased Stage III GFR 30-59 Moderately Decreased Stage IV GFR 15-29 Severely Decreased Stage V GFR <15 Very Little GFR Left ESRD GFR <15 on 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 Lab Order: CBC with Diff; JESSENIA 05/19/16 15:58 Test: WHITE BLOOD COUNT; Value: 9.8; Range: 4.0-10.0; Units: K/mm3; Status: F Test: RED BLOOD COUNT; Value: 5.45; Range: 4.00-5.40; Abnormal: Above high normal; Units: M/mm3; Status: F Test: HEMOGLOBIN; Value: 14.7; Range: 12.0-16.0; Units: g/dl; Status: F Test: HEMATOCRIT; Value: 44.4; Range: 36.0-47.0; Units: %; Status: F Test: MEAN CORPUSCULAR VOLUME; Value: 81.4; Range: 80.0-96.0; Units: fl; Status: F Test: MEAN CORPUSCULAR HEMOGLOBIN; Value: 27.0; Range: 27.0-33.0; Units: pg; Status: F Test: MEAN CORPUSCULAR HGB CONC; Value: 33.2; Range: 32.0-36.5; Units: g/dl; Status: F Test: RED CELL DISTRIBUTION WIDTH; Value: 14.0; Range: 11.5-14.5; Units: %; Status: F Test: PLATELET COUNT, AUTOMATED; Value: 340; Range: 150-450; Units: k/mm3; Status: F Test: NEUTROPHILS %; Value: 71.3; Range: 36.0-66.0; Abnormal: Above high normal; Units: %; Status: F Test: LYMPH %; Value: 19.1; Range: 24.0-44.0; Abnormal: Below low normal; Units: %; Status: F Test: MONO %; Value: 4.0; Range: 0.0-5.0; Units: %; Status: F Test: EOS %; Value: 2.5; Range: 0.0-3.0; Units: %; Status: F Test: BASO %; Value: 1.7; Range: 0.0-1.0; Abnormal: Above high normal; Units: %; Status: F Test: LARGE UNSTAINED CELL %; Value: 1.4; Range: 0.0-4.0; Units: %; Status: F Test: NEUTROPHILS #; Value: 7.0; Range: 1.8-7.7; Units: K/mm3; Status: F Test: LYMPH #; Value: 2.0; Range: 1.5-6.5; Units: K/mm3; Status: F Test: MONO #; Value: 0.4; Range: 0.0-0.8; Units: K/mm3; Status: F Test: EOS #; Value: 0.2; Range: 0.0-0.50; Units: K/mm3; Status: F Test: BASO #; Value: 0.2; Range: 0.0-0.2; Units: K/mm3; Status: F Test: LARGE UNSTAINED CELL #; Value: 0.1; Range: 0.0-0.4; Units: K/mm3; Status: F Lab Order: Lipase; SPEC'M 05/19/16 15:58 Test: LIPASE; Value: 982; Range: 73-393; Abnormal: Above high normal; Units: U/L; Status: F Lab Order: Liver Profile; SPEC'M 05/19/16 15:58 Test: AST/SGOT; Value: 46; Range: 15-37; Abnormal: Above high normal; Units: U/L; Status: F Test: ALT/SGPT; Value: 81; Range: 12-78; Abnormal: Above high normal; Units: U/L; Status: F Test: ALKALINE PHOSPHATASE; Value: 124; Range: 45-117; Abnormal: Above high normal; Units: U/L; Status: F Test: BILIRUBIN,TOTAL; Value: 0.4; Range: 0.2-1.0; Units: MG/DL; Status: F Test: BILIRUBIN,DIRECT; Value: 0.1; Range: 0.0-0.2; Units: MG/DL; Status: F Test: TOTAL PROTEIN; Value: 7.3; Range: 6.4-8.2; Units: GM/DL; Status: F Test: ALBUMIN; Value: 3.8; Range: 3.2-5.2; Units: GM/DL; Status: F Test: ALBUMIN/GLOBULIN RATIO; Value: 1.09; Range: 1.00-1.93; Status: F Lab Order: Prothrombin Time Profile\E\INR; SPEC'M 05/19/16 15:58 Test: PROTHROMBIN TIME; Value: 12.5; Range: 12.3-14.5; Units: SECONDS; Status: F Test: INR; Value: 0.92; Status: F Test Note: ; THERAPUTIC HUMAN INR VALUES INDICATIONS NORMAL RANGES PROPHYLAXIS/TREATMENT OF: VENOUS THROMBOSIS 2.0-3.0 PULMONARY EMBOLISM 2.0-3.0 PREVENTION OF SYSTEMIC EMBOLISM FROM: TISSUE HEART VALVES 2.0-3.0 ACUTE MYOCARDIAL INFARCTION 2.0-3.0 VALVULAR HEART DISEASE 2.0-3.0 ATRIAL FIBRILLATION 2.0-3.0 MECHANICAL VALVES(HIGH RISK) 2.5-3.5 RECURRENT MYOCARDIAL INFARCTION 2.5-3.5 Outcome: 18:07 Discharge ordered by Provider. 18:23 Discharge Assessment: Patient awake, alert and oriented x 3. No cognitive and/or kc3 functional deficits noted. Patient verbalized understanding of disposition instructions. patient administered narcotics - yes. Pt provided with safe discharge. The following High Risk Discharge criteria are identified: None. Condition: stable. Discharge instructions given to patient, Instructed on discharge instructions, follow up and referral plans. Demonstrated understanding of instructions, Pt was receptive of discharge instructions/ teaching. Property :Personal belongings accompany Pt. 18:24 Ultrasound Study completed. kc3 18:25 Patient left the ED. 3 Signatures: Tanmay Tian, MEDICAL LABORATORY MANAGER MEDICAL LABORATORY MANAGER Dav Owusu RN RN mlb1 Lena LeeRN RN ck1 Sita Rene, RN RN ttb Mallory Gross am17 Glenroy Ayon, MANAGEMENT INFORMATION SYSTEMS DIRECTOR MANAGEMENT INFORMATION SYSTEMS DIRECTOR jrd Pat Rae, MANAGEMENT INFORMATION SYSTEMS DIRECTOR MANAGEMENT INFORMATION SYSTEMS DIRECTOR rs6 Sharon Raphael,RN RN kc3 Jun Wagner,YOMI RN jf3 Chiquis Chappell MTDD
--- NOTE | 2016-05-19 18:26 | EDDOCDS ---
Physician Documentation [facility] Name: Nela Bearden Age: 26 yrs Sex: Female : 1990 Arrival Date: 05/19/2016 Time: 15:07 Bed I7 / 29 Private MD: Jasper Morel Disposition: 05/19/16 18:07 Discharged to Home/Self Care. Impression: Acute pancreatitis, Abdominal and pelvic pain. - Condition is Stable. - Discharge Instructions: Abdominal Pain, Adult, Acute Pancreatitis. - Medication Reconciliation, Local Pharmacy Hours form. - Follow up: Private Physician; When: As needed; Reason: Further diagnostic work-up, Recheck today's complaints, Continuance of care. - Problem is an ongoing problem. - Symptoms have improved. - Notes: ecourage po fluids Historical: - Allergies: NSAIDS - gastric bypass; - Home Meds: 1. multiple vitamins daily (Last dose: 05/19/2016 08:00) 2. Percocet 5-325 mg Oral tab 1 tab every 4 hours for Pain (Last dose: 05/19/2016 03:00) - PMHx: angioneurotic edema; Anxiety; Depression; - PSHx: right shoulder surgery; Gastric Bypass (October 23, 2015); - Social history: Smoking status: Patient states was never smoker of tobacco. Patient/guardian denies using alcohol, street drugs, No barriers to communication noted, The patient speaks fluent Irish, Speaks appropriately for age. - Family history: Not pertinent. - : The pt / caregiver states he / she is not on anticoagulants. Home medication list is obtained from the patient. - Exposure Risk Screening:: None identified. 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 5 in. (165.10 cm) (R); Pain 10/10; 18:22 BP 123 / 82; Pulse 64; Resp 18; Temp 97.4; Pulse Ox 100% on R/A; Pain 4/10; kc3 15:08 Body Mass Index 40.60 (110.68 kg, 165.10 cm) rs6 MDM: 15:54 NS 0.9% 1000 ml IV at bolus once ordered. ke 15:54 Ondansetron 4 mg IVP once ordered. ke 15:54 ketorolac 30 mg IVP once ordered. ke 15:54 IV Saline Lock ordered. ke 15:54 Undress patient appropriately for examination ordered. ke 15:55 Amylase Ordered. EDMS 15:55 Basic Metabolic Profile Ordered. EDMS 15:55 CBC with Diff Ordered. EDMS 15:55 Lipase Ordered. EDMS 15:55 Liver Profile Ordered. EDMS 15:55 Prothrombin Time Profile\E\INR Ordered. EDMS 15:55 NOTHING BY MOUTH+DIET ordered. EDMS 17:00 Basic Metabolic Profile Reviewed. ke 17:00 CBC with Diff Reviewed. ke 17:00 Lipase Reviewed. ke 17:00 Liver Profile Reviewed. ke 17:00 Amylase Reviewed. ke 17:00 Prothrombin Time Profile\E\INR Reviewed. ke 17:02 US Gallbladder Ordered. EDMS 17:11 Financial registration complete. [facility] 17:20 [facility] Payment Agreement was scanned into [employer] and attached to record. [facility] Administered Medications: 16:42 Drug: NS 0.9% 1000 ml [sodium chloride 0.9 % injection solution] Route: IV; Rate: mlb1 bolus; Site: left antecubital; 16:43 Drug: Ondansetron 4 mg [ondansetron HCl 2 mg/mL intravenous solution (2 mL)] Route: mlb1 IVP; Site: left antecubital; 16:43 Drug: ketorolac 30 mg [ketorolac 30 mg/mL (1 mL) injection solution (1 mL)] Route: IVP; mlb1 Site: left antecubital; Signatures: Dispatcher Med[employer] EDVT Tanmay Tian, RFID ENGINEER RFID ENGINEER Sita Orozco RN RN Sharon Allen RN RN Chiquis Muñoz b Dav العراقي RN mlb1 The chart was reviewed and I authenticate all verbal orders and agree with the evaluation and treatment provided.Attachments: 17:20 [facility] Payment Agreement gj MTDD
--- NOTE | 2016-05-19 18:55 | REP ---
GALLBLADDER ULTRASOUND: 05/19/2016. Comparison: CT abdomen pelvis 05/18/2016, gallbladder ultrasound 07/09/2014. Clinical history: Biliary colic. Findings: The liver is homogeneous in echotexture without focal hepatic mass, intrahepatic biliary dilatation nor perihepatic ascites. Gallbladder shows normal distensibility. There are multiple echogenic stones with only minimal shadowing. A transverse mucosal fold into the neck of the gallbladder. No gallbladder wall thickening or pericholecystic fluid. Most of these stones are small with the largest being 45 mm. Wall thickness is 2 mm. There is a positive sonographic Mantilla's sign during this examination. Common duct is 2.4 mm without filling defect. Pancreas has limited evaluation due to gas shadowing. The right kidney is 9.1 x 4.6 x 5.4 cm without hydronephrosis. Impression: 1. Cholelithiasis with numerous small stones, the largest being about 4 mm and these do not cause much shadowing. No pericholecystic fluid or wall thickening but a positive sonographic Mantilla's sign is present. Common duct 2.4 mm is normal and there is a no intrahepatic biliary dilatation. 2. Right kidney is unremarkable. The pancreas has limited evaluation due to gas shadowing. 3. The liver is homogeneous without biliary dilatation, enlargement or mass. No generalized ascites. Signed by Vitaliy Boyle MD 05/19/2016 08:03 P
--- NOTE | 2016-05-21 19:26 | EDDOCDS ---
Nurse's Notes [facility] Name: Nela Bearden Age: 26 yrs Sex: Female : 1990 Arrival Date: 05/19/2016 Time: 15:07 Bed I7 29 Private MD: Jasper Morel Diagnosis: Acute pancreatitis;Abdominal and pelvic pain Presentation: 05/19 15:11 Presenting complaint: Patient states: mid abd pain started approx 30 min ago : pt seen ttb here Tuesday night for same pain and dc'd home. Nausea. Denies vomiting or changes. Adult Sepsis Screening: moderate vaginal bleeding. The patient does not have new or worsening altered mentation. Adult Sepsis Screening: Patient's respiratory rate is less than 22. Systolic blood pressure is less than or equal to 100 (1 point). Patient has a qSOFA score of 0- Negative Sepsis Screen. Suicide/Homicide risk assessment- the patient denies having any suicidal and/or homicidal ideations and does not present with any other emotional, behavioral or mental health complaints. Status: Patient is not a senior service technician or dependent. Transition of care: patient was not received from another setting of care. 15:11 Acuity: CONOR Level 3 ttb 15:11 Method Of Arrival: Walkin/Carried/Asstd ttb Triage Assessment: 15:13 General: Appears in no apparent distress, well nourished, well groomed, Behavior is ttb appropriate for age, cooperative, pleasant, restless. Pain: Location: mid upper abd 8-10/10. Pain: Pain radiates to mid back. HIV screening NA for this visit Offered previously. Neurological: Level of Consciousness is awake, alert. Cardiovascular: Chest pain is denied. Respiratory: No deficits noted. Airway is patent Denies cough, shortness of breath. GI: Reports upper abd pain, nausea, Denies bloating, constipation, cramping, diarrhea, vomiting. : Reports vaginal bleeding that is d/t menses (which pt states is normal) Denies burning with urination, urinary frequency, urgency. Derm: Skin is normal. 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 multiple vitamins daily (Last dose: 05/19/2016 08:00) 2. Percocet 5-325 mg Oral tab 1 tab every 4 hours for Pain (Last dose: 05/19/2016 03:00) - PMHx: angioneurotic edema; Anxiety; Depression; - PSHx: right shoulder surgery; Gastric Bypass (October 23, 2015); - Social history: Smoking status: Patient states was never smoker of tobacco. Patient/guardian denies using alcohol, street drugs, No barriers to communication noted, The patient speaks fluent Dominican, Speaks appropriately for age. - Family history: Not pertinent. - : The pt / caregiver states he / she is not on anticoagulants. Home medication list is obtained from the patient. - Exposure Risk Screening:: None identified. Screenin:21 Screening information is obtained from the patient. Fall risk: No risks identified. kc3 Assistance ADL's: requires no assistance with activities of daily living. Abuse/DV Screen: The patient / caregiver reports he/she is: not in a situation that causes fear, pain or injury. Nutritional screening: No deficits noted. Advance Directives: Currently, there is no health care proxy. home support is adequate. Assessment: 16:41 General: Appears in no apparent distress, comfortable, Behavior is appropriate for age, mlb1 cooperative. Pain: Location: epigastric area Pain currently is 4 out of 10 on a pain scale. GI: Abdomen is non- distended Bowel sounds present X 4 quads. Abd is soft X 4 quads Abd is tender to palpation in epigastric area Reports nausea. 17:30 General: Appears in no apparent distress, comfortable, Behavior is appropriate for age, kc3 cooperative. Neurological: Level of Consciousness is awake, alert, obeys commands, Oriented to person, place, time. GI: Reports epigastric pain. Derm: Skin is pink, warm & dry. 18:18 General: Appears in no apparent distress, comfortable, Behavior is appropriate for age, kc3 cooperative. Neurological: Level of Consciousness is awake, alert, obeys commands. GI: Reports epigastric pain. Derm: Skin is pink, warm & dry. 18:19 General: Pt's family member appears upset at discharge. Family member requesting name kc3 of provider pt seen by. Pt given discharge instructions. No distress noted to pt. . Vital Signs: 15:08 BP 144 / 81 RA Sitting (auto/lg); Pulse 87; Resp 18; Temp 96.5; Pulse Ox 100% on R/A; rs6 Weight 110.68 kg (R); Height 5 ft. 5 in. (165.10 cm) (R); Pain 10/10; 18:22 BP 123 / 82; Pulse 64; Resp 18; Temp 97.4; Pulse Ox 100% on R/A; Pain 4/10; kc3 15:08 Body Mass Index 40.60 (110.68 kg, 165.10 cm) rs6 Vitals: 15:08 Log In Time: May 19, 2016 at 15:08. rs6 ED Course: 15:08 Patient visited by Pat Rae PCA. rs6 15:08 Jasper Morel is Private Physician. rs6 15:08 Patient moved to Waiting rs6 15:09 Patient visited by Pat Rae PCA. rs6 15:10 Patient moved to Pre RCE rs6 15:12 Triage Initiated ttb 15:42 Patient moved to Triage 1 jf3 15:46 [facility] Tian F[facility]. ke 15:46 Patient visited by Tanmay Tian FNP. ke 15:46 Patient visited by Tanmay Tian FNP. ke 16:05 Patient moved to 31 jf3 16:06 Inserted saline lock: 20 gauge in right antecubital area and blood collected. Labs mlb1 drawn. (by ED staff). Sent per order to lab. 16:06 Amylase Sent. mlb1 16:06 Basic Metabolic Profile Sent. mlb1 16:07 Patient visited by Dav العراقي, RN. mlb1 16:07 CBC with Diff Sent. mlb1 16:07 Lipase Sent. mlb1 16:07 Liver Profile Sent. mlb1 16:07 Prothrombin Time Profile\E\INR Sent. mlb1 16:07 No procedures done that require assistance. mlb1 16:21 Patient moved to I7 jrd 16:41 Patient visited by Lena Lee,YOMI. ck1 16:43 Patient visited by Dav العراقي, RN. mlb1 17:08 Patient moved to Ultrasound am17 17:20 [facility] Payment Agreement was scanned into [employer]bit and attached to record. gjb 17:24 Patient moved to I7 / am17 17:27 Patient visited by Tanmay Tian FNP. ke 18:05 Patient visited by Lena Lee RN. ck1 18:22 The patient / caregiver is instructed regarding the plan of care and ED course. kc3 19:19 US Gallbladder Returned. EDMS 05/20 09:13 T-Sheet-- Draft Copy was scanned into [employer]bit and attached to record. gb Administered Medications: 05/19 16:42 Drug: NS 0.9% 1000 ml [sodium chloride 0.9 % injection solution] Route: IV; Rate: mlb1 bolus; Site: left antecubital; 16:43 Drug: Ondansetron 4 mg [ondansetron HCl 2 mg/mL intravenous solution (2 mL)] Route: mlb1 IVP; Site: left antecubital; 16:43 Drug: ketorolac 30 mg [ketorolac 30 mg/mL (1 mL) injection solution (1 mL)] Route: IVP; mlb1 Site: left antecubital; Order Results: Lab Order: Amylase; SPEC'M 05/19/16 15:58 Test: AMYLASE; Value: 86; Range: 25-115; Units: U/L; Status: F Lab Order: Basic Metabolic Profile; SPEC'M 05/19/16 15:58 Test: GLUCOSE, FASTING; Value: 74; Range: 70-105; Units: MG/DL; Status: F Test: BLOOD UREA NITROGEN; Value: 8; Range: 7-18; Units: MG/DL; Status: F Test: CREATININE FOR GFR; Value: 0.83; Range: 0.55-1.02; Units: MG/DL; Status: F Test: GLOMERULAR FILTRATION RATE; Value: > 60.0; Range: >60; Status: F Test: SODIUM LEVEL; Value: 143; Range: 136-145; Units: MEQ/L; Status: F Test: POTASSIUM SERUM; Value: 4.4; Range: 3.5-5.1; Abnormal: Delta; Units: MEQ/L; Status: F Test: CHLORIDE LEVEL; Value: 107; Range: 98-107; Units: MEQ/L; Status: F Test: CARBON DIOXIDE LEVEL; Value: 28; Range: 21-32; Units: MEQ/L; Status: F Test: ANION GAP; Value: 8; Range: 8-16; Units: MEQ/L; Status: F Test: CALCIUM LEVEL; Value: 9.2; Range: 8.5-10.1; Units: MG/DL; Status: F Test Note: ; Units are mL/min/1.73 m2 Chronic Kidney Disease Staging per NKF: Stage I & II GFR >=60 Normal to Mildly Decreased Stage III GFR 30-59 Moderately Decreased Stage IV GFR 15-29 Severely Decreased Stage V GFR <15 Very Little GFR Left ESRD GFR <15 on MICROBIOLOGY LAB TECHNICIAN Lab Order: CBC with Diff; SPEC'M 05/19/16 15:58 Test: WHITE BLOOD COUNT; Value: 9.8; Range: 4.0-10.0; Units: K/mm3; Status: F Test: RED BLOOD COUNT; Value: 5.45; Range: 4.00-5.40; Abnormal: Above high normal; Units: M/mm3; Status: F Test: HEMOGLOBIN; Value: 14.7; Range: 12.0-16.0; Units: g/dl; Status: F Test: HEMATOCRIT; Value: 44.4; Range: 36.0-47.0; Units: %; Status: F Test: MEAN CORPUSCULAR VOLUME; Value: 81.4; Range: 80.0-96.0; Units: fl; Status: F Test: MEAN CORPUSCULAR HEMOGLOBIN; Value: 27.0; Range: 27.0-33.0; Units: pg; Status: F Test: MEAN CORPUSCULAR HGB CONC; Value: 33.2; Range: 32.0-36.5; Units: g/dl; Status: F Test: RED CELL DISTRIBUTION WIDTH; Value: 14.0; Range: 11.5-14.5; Units: %; Status: F Test: PLATELET COUNT, AUTOMATED; Value: 340; Range: 150-450; Units: k/mm3; Status: F Test: NEUTROPHILS %; Value: 71.3; Range: 36.0-66.0; Abnormal: Above high normal; Units: %; Status: F Test: LYMPH %; Value: 19.1; Range: 24.0-44.0; Abnormal: Below low normal; Units: %; Status: F Test: MONO %; Value: 4.0; Range: 0.0-5.0; Units: %; Status: F Test: EOS %; Value: 2.5; Range: 0.0-3.0; Units: %; Status: F Test: BASO %; Value: 1.7; Range: 0.0-1.0; Abnormal: Above high normal; Units: %; Status: F Test: LARGE UNSTAINED CELL %; Value: 1.4; Range: 0.0-4.0; Units: %; Status: F Test: NEUTROPHILS #; Value: 7.0; Range: 1.8-7.7; Units: K/mm3; Status: F Test: LYMPH #; Value: 2.0; Range: 1.5-6.5; Units: K/mm3; Status: F Test: MONO #; Value: 0.4; Range: 0.0-0.8; Units: K/mm3; Status: F Test: EOS #; Value: 0.2; Range: 0.0-0.50; Units: K/mm3; Status: F Test: BASO #; Value: 0.2; Range: 0.0-0.2; Units: K/mm3; Status: F Test: LARGE UNSTAINED CELL #; Value: 0.1; Range: 0.0-0.4; Units: K/mm3; Status: F Lab Order: Lipase; SPEC'M 05/19/16 15:58 Test: LIPASE; Value: 982; Range: 73-393; Abnormal: Above high normal; Units: U/L; Status: F Lab Order: Liver Profile; SPEC'M 05/19/16 15:58 Test: AST/SGOT; Value: 46; Range: 15-37; Abnormal: Above high normal; Units: U/L; Status: F Test: ALT/SGPT; Value: 81; Range: 12-78; Abnormal: Above high normal; Units: U/L; Status: F Test: ALKALINE PHOSPHATASE; Value: 124; Range: 45-117; Abnormal: Above high normal; Units: U/L; Status: F Test: BILIRUBIN,TOTAL; Value: 0.4; Range: 0.2-1.0; Units: MG/DL; Status: F Test: BILIRUBIN,DIRECT; Value: 0.1; Range: 0.0-0.2; Units: MG/DL; Status: F Test: TOTAL PROTEIN; Value: 7.3; Range: 6.4-8.2; Units: GM/DL; Status: F Test: ALBUMIN; Value: 3.8; Range: 3.2-5.2; Units: GM/DL; Status: F Test: ALBUMIN/GLOBULIN RATIO; Value: 1.09; Range: 1.00-1.93; Status: F Lab Order: Prothrombin Time Profile\E\INR; SPEC'M 05/19/16 15:58 Test: PROTHROMBIN TIME; Value: 12.5; Range: 12.3-14.5; Units: SECONDS; Status: F Test: INR; Value: 0.92; Status: F Test Note: ; THERAPUTIC HUMAN INR VALUES INDICATIONS NORMAL RANGES PROPHYLAXIS/TREATMENT OF: VENOUS THROMBOSIS 2.0-3.0 PULMONARY EMBOLISM 2.0-3.0 PREVENTION OF SYSTEMIC EMBOLISM FROM: TISSUE HEART VALVES 2.0-3.0 ACUTE MYOCARDIAL INFARCTION 2.0-3.0 VALVULAR HEART DISEASE 2.0-3.0 ATRIAL FIBRILLATION 2.0-3.0 MECHANICAL VALVES(HIGH RISK) 2.5-3.5 RECURRENT MYOCARDIAL INFARCTION 2.5-3.5 Radiology Order: US Gallbladder Test: US Gallbladder REASON FOR EXAMINATION: Biliary Colic; GALLBLADDER ULTRASOUND: 05/19/2016.; ; Comparison: CT abdomen pelvis 05/18/2016, gallbladder ultrasound 07/09/2014.; ; Clinical history: Biliary colic.; ; Findings: The liver is homogeneous in echotexture without focal hepatic mass,; intrahepatic biliary dilatation nor perihepatic ascites. Gallbladder shows; normal distensibility. There are multiple echogenic stones with only minimal; shadowing. A transverse mucosal fold into the neck of the gallbladder. No; gallbladder wall thickening or pericholecystic fluid. Most of these stones are; small with the largest being 45 mm. Wall thickness is 2 mm. There is a positive; sonographic Mantilla's sign during this examination. Common duct is 2.4 mm without; filling defect. Pancreas has limited evaluation due to gas shadowing. The right; kidney is 9.1 x 4.6 x 5.4 cm without hydronephrosis.; ; Impression:; ; 1. Cholelithiasis with numerous small stones, the largest being about 4 mm and; these do not cause much shadowing. No pericholecystic fluid or wall thickening; but a positive sonographic Mantilla's sign is present. Common duct 2.4 mm is; normal and there is a no intrahepatic biliary dilatation.; ; 2. Right kidney is unremarkable. The pancreas has limited evaluation due to gas; shadowing.; ; 3. The liver is homogeneous without biliary dilatation, enlargement or mass. No; generalized ascites.; ; ; Signed by; Vitaliy Boyle MD 05/19/2016 08:03 P; Outcome: 18:07 Discharge ordered by Provider. 18:23 Discharge Assessment: Patient awake, alert and oriented x 3. No cognitive and/or kc3 functional deficits noted. Patient verbalized understanding of disposition instructions. patient administered narcotics - yes. Pt provided with safe discharge. The following High Risk Discharge criteria are identified: None. Condition: stable. Discharge instructions given to patient, Instructed on discharge instructions, follow up and referral plans. Demonstrated understanding of instructions, Pt was receptive of discharge instructions/ teaching. Property :Personal belongings accompany Pt. 18:24 Ultrasound Study completed. kc3 18:25 Patient left the ED. kc3 Signatures: Dispatcher [employer] EDMS Kelsie Shah, Reg Reg gb Tanmay Tian, REAL ESTATE LEGAL ASSISTANT REAL ESTATE LEGAL ASSISTANT Dav Owusu RN RN mlb1 Lena LeeRN RN ck1 Sita Rene, RN RN ttb Mallory Gross am17 Glenroy Ayon, VICE PRESIDENT FIXED INCOME VICE PRESIDENT FIXED INCOME jrd Pat Rae, VICE PRESIDENT FIXED INCOME VICE PRESIDENT FIXED INCOME rs6 Sharon Raphael,YOMI RN kc3 Jun aWgner,RN RN jf3 Chiquis Chappell Chart Complete MTDD
--- NOTE | 2016-05-21 19:26 | EDDOCDS ---
Physician Documentation [facility] Name: Nela Bearden Age: 26 yrs Sex: Female : 1990 Arrival Date: 05/19/2016 Time: 15:07 Bed I7 / 29 Private MD: Jasper Morel Disposition: 05/19/16 18:07 Discharged to Home/Self Care. Impression: Acute pancreatitis, Abdominal and pelvic pain. - Condition is Stable. - Discharge Instructions: Abdominal Pain, Adult, Acute Pancreatitis. - Medication Reconciliation, Local Pharmacy Hours form. - Follow up: Private Physician; When: As needed; Reason: Further diagnostic work-up, Recheck today's complaints, Continuance of care. - Problem is an ongoing problem. - Symptoms have improved. - Notes: ecourage po fluids Historical: - Allergies: NSAIDS - gastric bypass; - Home Meds: 1. multiple vitamins daily (Last dose: 05/19/2016 08:00) 2. Percocet 5-325 mg Oral tab 1 tab every 4 hours for Pain (Last dose: 05/19/2016 03:00) - PMHx: angioneurotic edema; Anxiety; Depression; - PSHx: right shoulder surgery; Gastric Bypass (October 23, 2015); - Social history: Smoking status: Patient states was never smoker of tobacco. Patient/guardian denies using alcohol, street drugs, No barriers to communication noted, The patient speaks fluent Spanish, Speaks appropriately for age. - Family history: Not pertinent. - : The pt / caregiver states he / she is not on anticoagulants. Home medication list is obtained from the patient. - Exposure Risk Screening:: None identified. 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 5 in. (165.10 cm) (R); Pain 10/10; 18:22 BP 123 / 82; Pulse 64; Resp 18; Temp 97.4; Pulse Ox 100% on R/A; Pain 4/10; kc3 15:08 Body Mass Index 40.60 (110.68 kg, 165.10 cm) rs6 MDM: 15:54 NS 0.9% 1000 ml IV at bolus once ordered. ke 15:54 Ondansetron 4 mg IVP once ordered. ke 15:54 ketorolac 30 mg IVP once ordered. ke 15:54 IV Saline Lock ordered. ke 15:54 Undress patient appropriately for examination ordered. ke 15:55 Amylase Ordered. EDMS 15:55 Basic Metabolic Profile Ordered. EDMS 15:55 CBC with Diff Ordered. EDMS 15:55 Lipase Ordered. EDMS 15:55 Liver Profile Ordered. EDMS 15:55 Prothrombin Time Profile\E\INR Ordered. EDMS 15:55 NOTHING BY MOUTH+DIET ordered. EDMS 17:00 Basic Metabolic Profile Reviewed. ke 17:00 CBC with Diff Reviewed. ke 17:00 Lipase Reviewed. ke 17:00 Liver Profile Reviewed. ke 17:00 Amylase Reviewed. ke 17:00 Prothrombin Time Profile\E\INR Reviewed. ke 17:02 US Gallbladder Ordered. EDMS 17:11 Financial registration complete. [facility] 17:20 [facility] Payment Agreement was scanned into [employer] and attached to record. [facility] 05/20 09:13 T-Sheet-- Draft Copy was scanned into [employer] and attached to record. gb Administered Medications: 05/19 16:42 Drug: NS 0.9% 1000 ml [sodium chloride 0.9 % injection solution] Route: IV; Rate: mlb1 bolus; Site: left antecubital; 16:43 Drug: Ondansetron 4 mg [ondansetron HCl 2 mg/mL intravenous solution (2 mL)] Route: mlb1 IVP; Site: left antecubital; 16:43 Drug: ketorolac 30 mg [ketorolac 30 mg/mL (1 mL) injection solution (1 mL)] Route: IVP; mlb1 Site: left antecubital; Signatures: Dispatcher [employer] EDMS Kelsie Shah, Denny Reg Tanmay Shelley, SPECIMEN PROCESSOR Sita Ayers RN RN ttb Sharon Raphael RN RN kc3 Chiquis Chappell b Dav العراقي RN mlb1 The chart was reviewed and I authenticate all verbal orders and agree with the evaluation and treatment provided.Attachments: 17:20 [facility] Payment Agreement gjb 05/20 09:13 T-Sheet-- Draft Copy gb Chart Complete MTDD
--- NOTE | 2016-05-21 19:26 | EDDOCDS ---
Physician Documentation [facility] Name: Nela Bearden Age: 26 yrs Sex: Female : 1990 Arrival Date: 05/19/2016 Time: 15:07 Bed I7 / 29 Private MD: Jasper Morel Disposition: 05/19/16 18:07 Discharged to Home/Self Care. Impression: Acute pancreatitis, Abdominal and pelvic pain. - Condition is Stable. - Discharge Instructions: Abdominal Pain, Adult, Acute Pancreatitis. - Medication Reconciliation, Local Pharmacy Hours form. - Follow up: Private Physician; When: As needed; Reason: Further diagnostic work-up, Recheck today's complaints, Continuance of care. - Problem is an ongoing problem. - Symptoms have improved. - Notes: ecourage po fluids Historical: - Allergies: NSAIDS - gastric bypass; - Home Meds: 1. multiple vitamins daily (Last dose: 05/19/2016 08:00) 2. Percocet 5-325 mg Oral tab 1 tab every 4 hours for Pain (Last dose: 05/19/2016 03:00) - PMHx: angioneurotic edema; Anxiety; Depression; - PSHx: right shoulder surgery; Gastric Bypass (October 23, 2015); - Social history: Smoking status: Patient states was never smoker of tobacco. Patient/guardian denies using alcohol, street drugs, No barriers to communication noted, The patient speaks fluent Uruguayan, Speaks appropriately for age. - Family history: Not pertinent. - : The pt / caregiver states he / she is not on anticoagulants. Home medication list is obtained from the patient. - Exposure Risk Screening:: None identified. 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 5 in. (165.10 cm) (R); Pain 10/10; 18:22 BP 123 / 82; Pulse 64; Resp 18; Temp 97.4; Pulse Ox 100% on R/A; Pain 4/10; kc3 15:08 Body Mass Index 40.60 (110.68 kg, 165.10 cm) rs6 MDM: 15:54 NS 0.9% 1000 ml IV at bolus once ordered. ke 15:54 Ondansetron 4 mg IVP once ordered. ke 15:54 ketorolac 30 mg IVP once ordered. ke 15:54 IV Saline Lock ordered. ke 15:54 Undress patient appropriately for examination ordered. ke 15:55 Amylase Ordered. EDMS 15:55 Basic Metabolic Profile Ordered. EDMS 15:55 CBC with Diff Ordered. EDMS 15:55 Lipase Ordered. EDMS 15:55 Liver Profile Ordered. EDMS 15:55 Prothrombin Time Profile\E\INR Ordered. EDMS 15:55 NOTHING BY MOUTH+DIET ordered. EDMS 17:00 Basic Metabolic Profile Reviewed. ke 17:00 CBC with Diff Reviewed. ke 17:00 Lipase Reviewed. ke 17:00 Liver Profile Reviewed. ke 17:00 Amylase Reviewed. ke 17:00 Prothrombin Time Profile\E\INR Reviewed. ke 17:02 US Gallbladder Ordered. EDMS 17:11 Financial registration complete. [facility] 17:20 [facility] Payment Agreement was scanned into [email or web address] and attached to record. [facility] 05/20 09:13 T-Sheet-- Draft Copy was scanned into [email or web address] and attached to record. gb Administered Medications: 05/19 16:42 Drug: NS 0.9% 1000 ml [sodium chloride 0.9 % injection solution] Route: IV; Rate: mlb1 bolus; Site: left antecubital; 16:43 Drug: Ondansetron 4 mg [ondansetron HCl 2 mg/mL intravenous solution (2 mL)] Route: mlb1 IVP; Site: left antecubital; 16:43 Drug: ketorolac 30 mg [ketorolac 30 mg/mL (1 mL) injection solution (1 mL)] Route: IVP; mlb1 Site: left antecubital; Signatures: Dispatcher [employer] EDMS Kelsie Shah, Denny Reg Tanmay Shelley, APARTMENT RENTAL CLERK Sita Ayers RN RN ttb Sharon Raphael RN RN kc3 Chiquis Chappell b Dav العراقي RN mlb1 The chart was reviewed and I authenticate all verbal orders and agree with the evaluation and treatment provided.Attachments: 17:20 [facility] Payment Agreement gjb 05/20 09:13 T-Sheet-- Draft Copy gb Chart Complete MTDD
== END 2016-05-19 18:25 | disposition home or self-care (01) ==
LOC: M ED 15:07
DX: K85.90 Acute pancreatitis without necrosis or infection, unspecified (principal); F41.9 Anxiety disorder, unspecified; F32.9 Major depressive disorder, single episode, unspecified; Z98.84 Bariatric surgery status; Z79.899 Other long term (current) drug therapy; Z88.6 Allergy status to analgesic agent
CPT/HCPCS: 36415; 76705; 80048; 80076; 82150; 83690; 85025; 85610; 96374; 96375; 99284; J1885; J2405

== ENCOUNTER 2017-02-10 21:56 | Inpatient (IN) | payer BC, OTHER, SELFPAY ==
[~2017-02-10] VITALS: Ht 165.1 cm; Wt 101.0 kg
[2017-02-10] MEDS ORDERED: MULT1TAB18 PO (22:24)
[2017-02-10] MEDS ORDERED: FERR325T3 PO (22:24)
[2017-02-10 23:16] LABS: MEAN CORPUSCULAR HEMOGLOBIN 26.8 pg (27.0-33.0); MEAN CORPUSCULAR HGB CONC 33.3 g/dl (32.0-36.5); MEAN CORPUSCULAR VOLUME 80.6 fl (80.0-96.0); RED CELL DISTRIBUTION WIDTH 14.1 % (11.5-14.5); WHITE BLOOD COUNT 8.3 10^3/uL (4.0-10.0)
[2017-02-10 23:43] LABS: CONTROL LINE HCG INT CTR LINE PRESENT
[2017-02-10 23:50] LABS: ALBUMIN 3.5 GM/DL (3.2-5.2); ALBUMIN/GLOBULIN RATIO 1.13 (1.00-1.93); ALKALINE PHOSPHATASE 97 U/L (45-117); ALT/SGPT 22 U/L (12-78); ANION GAP 10 MEQ/L (8-16); AST/SGOT 18 U/L (15-37); BILIRUBIN,DIRECT 0.2 MG/DL (0.0-0.2); BILIRUBIN,TOTAL 0.8 MG/DL (0.2-1.0); BLOOD UREA NITROGEN 7 MG/DL (7-18); CALCIUM LEVEL 8.5 MG/DL (8.5-10.1); CARBON DIOXIDE LEVEL 23 MEQ/L (21-32); CHLORIDE LEVEL 108 MEQ/L (98-107); CREATININE FOR GFR 0.63 MG/DL (0.55-1.02); GLOMERULAR FILTRATION RATE > 60.0 (>60); GLUCOSE, FASTING 85 MG/DL (70-105); SODIUM LEVEL 141 MEQ/L (136-145); TOTAL PROTEIN 6.6 GM/DL (6.4-8.2)
[2017-02-10 23:53] LABS: METHADONE URINE NEGATIVE (NEGATIVE)
[2017-02-10] MEDS ORDERED: BARIATRIC MULTI PO (23:55)
[2017-02-11] MEDS ORDERED: MAALOX 30 ML SUSP *UDC PO PRN (00:45)
[2017-02-11] MEDS ORDERED: traZODone 50 MG TAB PO PRN (00:45)
[2017-02-11] MEDS ORDERED: MOM 30ML SUSPENSION UDC PO PRN (00:45)
[2017-02-11 03:37] VITALS: BP 129/75
--- NOTE | 2017-02-11 10:12 | HPEPDOC ---
[facility] Medical History & Physical Date of Admission Feb 10, 2017 History and Physical PCP: Jasper Villatoro MD [place] ATTENDING: Dr. Khang Chester HPI: 26 yo F admitted to [facility] for unspecified depressive disorder, being medically examined today. No acute medical complaints today. Denies any fevers, chills, weakness, fatigue, [place], CP, SOB, cough, palpitations, abdominal pain, N/V /D or changes in bowel or bladder habits. PMHx: Anxiety Depression History of SI History of substance use Obesity. BMI noted to be 37.3. PSHX: History of gastric bypass surgery Cholecystectomy SOCHX: Resides in: 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 ROS: As noted in HPI, otherwise 11pt ROS of systems reviewed and remarkable only for LMP unknown PE: GEN: 26 yoF, appears stated age. Well-nourished, well developed. No acute distress. Alert and oriented x 3. Pleasant, interactive. HEENT: Normocephalic, atraumatic. Pupils are equal, round, and reactive to light. Extraocular movements are intact. No nystagmus appreciated. Sclera are nonicteric. Conjunctiva without injection. Nose midline. Nasal turbinates without bogginess. EACs both patent BL. TMs both visualized and chairez with good cone of light, no bulging or erythema. No facial asymmetry. Moist mucous membranes. Dentition fair. Pharynx pink and moist, no cobblestoning. Neck supple , trachea midline. No lymphadenopathy or thyromegaly appreciated. CHEST: Regular rate and rhythm, +S1, +S2 LUNGS: Clear to auscultation bilaterally. No wheezes, rales, or rhonchi. Breathing appears symmetric and easy. Patient is speaking in full sentences. No accessory muscle use. ABD: Round, soft, non-tender, non-distended. +Bowel sounds throughout. No rebound or guarding. No costovertebral angle tenderness. EXT: Pulses 2+ bilaterally dorsalis pedis and radial. No lower extremity edema appreciated. SKIN: Pal[place], dry, warm. Capillary refill <2sec. No rashes. NEURO: Alert and oriented x 3. Cranial nerves III-XII are intact. No focal deficits appreciated. EKG: Pending. A&P: 26 yo F admitted to [facility] for unspecified depressive disorder 1. Psych. Plan per Psychiatry. Obtain baseline EKG to assure the safety of psychiatric medications as they can prolong the QT interval. 2. History of bariatric surgery/obesity. BMI 37.3. TSH is noted within normal limits. BS within normal limits. Add vitamin D level. 3. Follow up with PCP on discharge. 4. Substance use. Per psychiatry. 5. Staff member Chastity present throughout exam. Vital Signs Vital Signs Date Time Temp Pulse Resp B/P (MAP) Pulse Ox O2 Delivery O2 Flow Rate FiO2 02/11/17 03:37 97.5 64 18 129/75 (93) Room Air 02/11/17 03:25 98 Laboratory Data Labs 24H Laboratory Tests 2 02/10/17 23:03: Anion Gap 10, Glomerular Filtration Rate > 60.0, Calcium Level 8.5, Aspartate Amino Transf (AST/SGOT) 18, Alanine Aminotransferase (ALT/SGPT) 22, Alkaline Phosphatase 97, Total Bilirubin 0.8, Direct Bilirubin 0.2, Total Protein 6.6, Albumin 3.5, Albumin/Globulin Ratio 1.13, Thyroid Stimulating Hormone (TSH) 0.961, Human Chorionic Gonadotropin, Qual NEGATIVE, Salicylates Level < 1.7L, Acetaminophen Level < 2.0L, Ethyl Alcohol Level 0.003 02/10/17 23:11: Urine Amphetamines Screen NEGATIVE, Urine Benzodiazepines Screen NEGATIVE, Urine Opiates Screen NEGATIVE, Urine Methadone Screen NEGATIVE, Urine Barbiturates Screen NEGATIVE, Urine Phencyclidine Screen NEGATIVE, Urine Cocaine Metabolite Screen NEGATIVE, Urine Cannabinoids Screen POSITIVEH CBC/BMP Laboratory Tests 02/10/17 23:03 Red Blood Count 5.04, Mean Corpuscular Volume 80.6, Mean Corpuscular Hemoglobin 26.8 L, Mean Corpuscular Hemoglobin Concent 33.3, Red Cell Distribution Width 14.1 Home Medications Scheduled [Bariatric Multi] , 1 CHEW PO DAILY Allergies Coded Allergies: NSAIDs (Unverified Allergy, Severe, GASTRIC BYPASS, 02/10/17) Leola Torres Feb 11, 2017 10:12
[2017-02-11] MEDS: ACETAMINOPHEN TAB 650MG DOSE (2X325MG) PO PRN ×2 (11:33→21:03)
--- NOTE | 2017-02-11 13:20 | MHHPEPDOC ---
[facility] History & Physical History and Physical DATE OF ADMISSION: Feb 11, 2017 at 00:33 LEGAL STATUS AT ADMISSION: . 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 Says after meeting with ex- girlfriend (Beckie) the day prior and being surprised by the breakup she was in the bathroom of their shared apartment sitting on the floor, she had grabbed a knife from the kitchen and placed it next to her. She sent her ex-girlfriend a text stating that " I wanted to and will look over you". For three weeks she states she had been very depressed, had SI/plan with pills and knife. This being her latest depressive episode, but had been "up" and "down" since Jun, when she had a cholecystectomy, due to a complication from bypass surgery , in October 2015. She states she has "highs" lasting 2 weeks at most, where you lack sleep, very high energy, spending above her means. 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 She says she continues to live with her ex- girlfriend and doesn't want to live with her family, due to her alcoholic father being a "jerk" and for "logistical" reasons. She denies any AVH, delusions, paranoia, but admits to labile mood. PSYCHIATRIC REVIEW OF SYSTEMS: Affective: Says she has manic periods of high energy; family members tell her she is a "chatter box", she can also be irritable and aggressive at these times. She also says she is impulsive and goes on "shopping sprees"/switches majors at school/quits jobs. She says she's had approximately 15 periods this year. She says most of the time she's "depressed", sleeps alot, energy is low, and has thoughts of self harm. Anxiety: Says she always has many things on her mind that makes it hard for her to handle. Trauma: Denies Psychosis: Denies any AVH, paranoia Personality: Labile mood, "smallest things make me agitated", easily frustrated by changes in plans. 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 Morel. Outpatient Treatment: High school counseling by Christa Iverson for phobia, supportive therapy Suicidal/Self injurious: Suicidal thoughts in high school with plan; thought about hanging self, also 3 times in last 3 weeks, "impulsive" thoughts of cutting self/taking pills Psychotropic Medication History: Celexa for angioneurotic edema ALLERGIES: Please see below. FAMILY PSYCHIATRIC HISTORY: Per patient-Mother, seasonal affective disorder, depression, anxiety sees a psychiatrist. Father has depression/anxiety, recovering alcoholic, has had inpatient treatment in the past and had rehab this spring, sees an outpatient psychiatrist. Younger sister sees a counselor for anxiety/depression undiagnosed. States Aunt/uncle and grandparents anxiety/ depression, unsure of dx. SOCIAL HISTORY: Early Relations/development: Grew up in [facility], parents were , father had alcohol addiction. Says all members of family including grandparents/ siblings have depression and anxiety problems. Father had manic symptoms and depression. Family would leave with mother and for periods of 1 to 6 months, on 3 or 4 occasions to live with grandparents, since father would impulsively quit his job and financial issues became a burden. Says she felt like the "head of the family" during these periods and would take care of depressed mother. Also stressor of having a sister achondroplasia. Sibling order: 1 younger sister w/ achondroplasia, Genesis Paternal relationships: Father was distant, had alcohol addiction, periods where overworking, periods of depression/withdrawal Education: Graduated high school. 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 Recently started working for a [employer]. Currently employed. Legal: denies legal history Martial: Lives with ex-girlfriend currently, recently broke up, but continues to live with her. 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 Supports: Both parents, although father has struggles, younger sister, members of extended family, ex-girlfriend continues to visit in the [facility](amicable friend ). Abuse/trauma: Denies SUBSTANCE ABUSE HISTORY: social drinking once a month (1-3 liquor drinks), smokes cannabis once a week PAST MEDICAL/SURGICAL HISTORY: 1. Cholecystectomy Jun 2016 2. Gastric bypass October 2015 3. R shoulder Surgery, September 2007 VITAL SIGNS: Temperature 99, pulse 78, respiratory rate 16, blood pressure 150/ 90 MENTAL STATUS EXAMINATION: General appearance: Patient is a 26-year old female, who appears her stated age , is in NAD, cooperative, makes normal eye contact. Speech: pressured, increased rate/volume Thought processes: circumstantial Thought content: Endorses SI, denies HI, AVH, paranoia Abstract reasoning and computation: Intact Description of associations: Intact Description of abnormal or psychotic thoughts: Denies Judgment: poor Insight: poor Orientation: A/O x 3 Recent and remote memory: Intact Attention span and concentration: decreased Fund of knowledge: Good. Mood: "anxious" Affect: manic, mood congruent DIAGNOSES: 1. Bipolar Disorder I, latest is mixed episode, rule out Bipolar II with rapid cycling 2. Borderline Personality disorder. ASSESSMENT: Patient has symptoms consistent with Bipolar Disorder I, with mixed symptoms. She has manic episodes: symptoms approximately lasting 2 weeks per patient, where she has expansive mood, goes on spending sprees and is hyperverbal/irritable to the point of aggressiveness. She Also says she has depressive periods where she sleeps in late, avoids people and has decreased mood. She says recently she has missed work because of the symptoms, but also appears anxious/irritable/talkative, consistent with a mixed episode. She says this is the first time she has had a plan to kill herself, but has had suicidal thoughts at times in the past. She has a strong support system from family members and her ex-girlfriend. Although she was counseled regarding her situation living with her ex-girlfriend. PROBLEM LIST: 1. Bipolar Disorder 2. Depression 2. Suicidal thoughts 3. Anxiety 3. Risk for self harm INITIAL TREATMENT PLAN: 1. Patient was admitted on a 9.39. 2. Complete history was obtained. 3. With patients permission, family will be contacted and database will be expanded. 4. Patients medication regimen will be reviewed and changed accordingly. 5. Patient will be provided with protected environment. 6. Patient will be treated with individual, group, and milieu therapies. 7. Patient will receive supportive psych-education. 8. Discharge planning will commence immediately. 9. Outpatient follow-up treatment will be strongly recommended. 10. The initial treatment plan will focus initially on: * Depression/anxiety. * Risk for suicide. * Substance abuse. ESTIMATED LENGTH OF STAY: 2-10 DAYS. TIME SPENT COUNSELING AND COORDINATING INITIAL CARE: 50 minutes. Laboratory Data 24H Labs Laboratory Tests 2 02/10/17 23:03: Anion Gap 10, Glomerular Filtration Rate > 60.0, Calcium Level 8.5, Aspartate Amino Transf (AST/SGOT) 18, Alanine Aminotransferase (ALT/SGPT) 22, Alkaline Phosphatase 97, Total Bilirubin 0.8, Direct Bilirubin 0.2, Total Protein 6.6, Albumin 3.5, Albumin/Globulin Ratio 1.13, 25-Hydroxy Vitamin D Total 11.9L, Thyroid Stimulating Hormone (TSH) 0.961, Human Chorionic Gonadotropin, Qual NEGATIVE, Salicylates Level < 1.7L, Acetaminophen Level < 2.0L, Ethyl Alcohol Level 0.003 02/10/17 23:11: Urine Amphetamines Screen NEGATIVE, Urine Benzodiazepines Screen NEGATIVE, Urine Opiates Screen NEGATIVE, Urine Methadone Screen NEGATIVE, Urine Barbiturates Screen NEGATIVE, Urine Phencyclidine Screen NEGATIVE, Urine Cocaine Metabolite Screen NEGATIVE, Urine Cannabinoids Screen POSITIVEH CBC/BMP Laboratory Tests 02/10/17 23:03 Red Blood Count 5.04, Mean Corpuscular Volume 80.6, Mean Corpuscular Hemoglobin 26.8 L, Mean Corpuscular Hemoglobin Concent 33.3, Red Cell Distribution Width 14.1 Medications Scheduled [Bariatric Multi] , 1 CHEW PO DAILY, (Reported) Allergies Coded Allergies: NSAIDs (Unverified Allergy, Severe, GASTRIC BYPASS, 02/10/17) MANSI FUENTES PGY-1 Feb 11, 2017 13:20
--- NOTE | 2017-02-11 17:44 | ECGEPIP ---
Stationary ECG Study [facility] Test Date: 2017-02-11 Pat Name: EDWIN CHAVEZ Department: Room: [place] [address] Gender: F Disability Attorney: ED : 1990 Requested By: Leola Torres Order Number: [id number] Reading MD: Joana Casiano Measurements Intervals Callahan Rate: 60 P: 154 AK: 108 QRS: 9 QRSD: 93 T: 24 QT: 429 QTc: 432 Interpretive Statements ECTOPIC ATRIAL RHYTHM WITH SHORT AK INTERVAL NONSPECIFIC T-WAVE ABNORMALITY ABNORMAL RHYTHM ECG SIMILAR TO 12/25/15 Electronically Signed On 02-11-2017 17:44:06 EDT by Joana Casiano
[2017-02-11 18:00] VITALS: BP 150/90
[2017-02-11] MEDS: [UNRECOGNIZED DRUG - OTHER] PO SCH (21:01)
[2017-02-11] MEDS: QUEtiapine FUMARATE 25 MG TAB PO SCH (21:38)
[2017-02-12 07:00] VITALS: BP 111/56
[2017-02-12] MEDS: [UNRECOGNIZED DRUG - OTHER] PO SCH ×2 (09:06→20:55)
--- NOTE | 2017-02-12 15:54 | MHIPNPDOC ---
[facility] Progress Note Progress Note DATE OF SERVICE: 02/12/17 HISTORY: . 26-year-old female admitted due to worsening symptoms of depression and suicidal ideas, endorsed worsening symptoms of depression, including depressed mood, low energy, hypersomnia, ideas of suicide, reported wanted to kill herself the night before of admission but no specific plan. Patient currently denied ideas of self harm , still endorsed depressive symptoms, no side effects of medications, VITAL SIGNS: See below. NEW TEST RESULTS: . CURRENT MEDICATIONS: See below. MENTAL STATUS EXAMINATION: General appearance: Patient is a 26-year old female, who appears her stated age , is in NAD, cooperative, makes normal eye contact. Speech: circumstantial Thought processes: . Thought content: no SI, denies HI, AVH, paranoia Abstract reasoning and computation: .adequate Description of abnormal or psychotic thoughts: .no psychosis observed Judgment: poor Insight: poor Orientation: A/O x 3 Recent and remote memory: Intact Attention span and concentration: decreased Fund of knowledge: Mood: "anxious" Affect: labile DIAGNOSES: 1. .Bipolar disorder , most recent episode depressed 2. . 3. . MANAGEMENT PLAN: . Continue current medications Supportive individual/group therapy Milieu therapy TIME SPENT: [25] minutes. Vital Signs Vital Signs Date Time Temp Pulse Resp B/P (MAP) Pulse Ox O2 Delivery O2 Flow Rate FiO2 02/12/17 07:00 97.9 56 18 111/56 (74) 02/11/17 03:37 Room Air 02/11/17 03:25 98 Current Medications Current Medications Acetaminophen (Tylenol Tab) 650 mg Q6HP PRN PO HEADACHE or DISCOMFORT Last administered on 02/11/17 21:03; Start 02/11/17 at 00:45; Stop 03/13/17 at 00:44 Al Hydrox/Mg Hydrox/Simethicone (Mylanta) 30 ml Q4HP PRN PO HEARTBURN/ INDIGESTION; Start 02/11/17 at 00:45; Stop 03/13/17 at 00:44 Aripiprazole (AbiLIFY) 2.5 mg BID PO Last administered on 02/12/17 09:05; Start 02/11/17 at 09:00; Stop 03/13/17 at 08:59 Home Med (Med Rec Complete!) ASDIRECTED XX ; Start 02/11/17 at 00:00; Stop 02/11/17 at 00:00; Status DC Magnesium Hydroxide (Milk Of Magnesia) 30 ml DAILYPRN PRN PO CONSTIPATION; Start 02/11/17 at 00:45; Stop 03/13/17 at 00:44 Miscellaneous (Unresolved Patient Own Med Order) SEE LABEL COMMENTS UNRESOLVED XX ; Start 02/11/17 at 00:01; Stop 02/11/17 at 14:08; Status DC Patient Own Medication (Patient'S Own Med) 1 ea BID PO Last administered on 09:06; Start 02/11/17 at 21:00; Stop 03/13/17 at 20:59 Quetiapine Fumarate (SEROquel) 75 mg QHS PO Last administered on 02/11/17 21: 38; Start 02/11/17 at 21:00; Stop 03/13/17 at 20:59 Trazodone HCl (Desyrel) 50 mg QHSP PRN PO INSOMNIA; Start 02/11/17 at 00:45; Stop 03/13/17 at 00:44; Status Cancel Allergies Coded Allergies: NSAIDs (Unverified Allergy, Severe, GASTRIC BYPASS, 02/10/17) ZOILA MAY MD Feb 12, 2017 15:54
[2017-02-12] MEDS: QUEtiapine FUMARATE 25 MG TAB PO SCH (22:18)
[2017-02-13 06:34] VITALS: BP 121/66
[2017-02-13] MEDS: [UNRECOGNIZED DRUG - OTHER] PO SCH ×2 (09:03→21:21)
--- NOTE | 2017-02-13 14:38 | MHIPNPDOC ---
[facility] Progress Note Progress Note DATE OF SERVICE: 02/13/17 HISTORY: . 26-year-old female admitted due to worsening symptoms of depression and suicidal ideas, endorsed worsening symptoms of depression, including depressed mood, low energy, hypersomnia, ideas of suicide, reported wanted to kill herself the night before of admission but no specific plan. Patient currently denied ideas of self harm , still endorsed depressed mood, thinks is doing better , no side effects of medications, VITAL SIGNS: See below. NEW TEST RESULTS: . CURRENT MEDICATIONS: See below. MENTAL STATUS EXAMINATION: General appearance: Patient is a 26-year old female, who appears her stated age , cooperative, makes normal eye contact. Speech: linear and goal directed Thought processes: . Thought content: no SI, denies HI, no AVH, paranoia Abstract reasoning and computation: .adequate Description of abnormal or psychotic thoughts: .no psychosis observed Judgment: poor Insight: poor Orientation: A/O x 3 Recent and remote memory: Intact Attention span and concentration: decreased Fund of knowledge: Mood: "ok" Affect: constricted DIAGNOSES: 1. .Bipolar disorder , most recent episode depressed 2. . 3. . MANAGEMENT PLAN: . Continue current medications Supportive individual/group therapy Milieu therapy TIME SPENT: [25] minutes. Vital Signs Vital Signs Date Time Temp Pulse Resp B/P (MAP) Pulse Ox O2 Delivery O2 Flow Rate FiO2 02/13/17 06:34 96.7 71 18 121/66 (84) 02/11/17 03:37 Room Air 02/11/17 03:25 98 Current Medications Current Medications Acetaminophen (Tylenol Tab) 650 mg Q6HP PRN PO HEADACHE or DISCOMFORT Last administered on 02/11/17 21:03; Start 02/11/17 at 00:45; Stop 03/13/17 at 00:44 Al Hydrox/Mg Hydrox/Simethicone (Mylanta) 30 ml Q4HP PRN PO HEARTBURN/ INDIGESTION; Start 02/11/17 at 00:45; Stop 03/13/17 at 00:44 Aripiprazole (AbiLIFY) 2.5 mg BID PO Last administered on 02/13/17 09:03; Start 02/11/17 at 09:00; Stop 03/13/17 at 08:59 Home Med (Med Rec Complete!) ASDIRECTED XX ; Start 02/11/17 at 00:00; Stop 02/11/17 at 00:00; Status DC Magnesium Hydroxide (Milk Of Magnesia) 30 ml DAILYPRN PRN PO CONSTIPATION; Start 02/11/17 at 00:45; Stop 03/13/17 at 00:44 Miscellaneous (Unresolved Patient Own Med Order) SEE LABEL COMMENTS UNRESOLVED XX ; Start 02/11/17 at 00:01; Stop 02/11/17 at 14:08; Status DC Patient Own Medication (Patient'S Own Med) 1 ea BID PO Last administered on 09:03; Start 02/11/17 at 21:00; Stop 03/13/17 at 20:59 Quetiapine Fumarate (SEROquel) 75 mg QHS PO Last administered on 02/12/17 22: 18; Start 02/11/17 at 21:00; Stop 03/13/17 at 20:59 Trazodone HCl (Desyrel) 50 mg QHSP PRN PO INSOMNIA; Start 02/11/17 at 00:45; Stop 03/13/17 at 00:44; Status Cancel Allergies Coded Allergies: NSAIDs (Unverified Allergy, Severe, GASTRIC BYPASS, 02/10/17) ZOILA MAY MD Feb 13, 2017 14:38
[2017-02-13 18:00] VITALS: BP 128/71
[2017-02-13] MEDS: QUEtiapine FUMARATE 25 MG TAB PO SCH (21:39)
[2017-02-14 07:15] VITALS: BP 115/57
[2017-02-14] MEDS: [UNRECOGNIZED DRUG - OTHER] PO SCH ×2 (08:34→20:54)
[2017-02-14] MEDS ORDERED: VITAMIN D 50,000 UNITS CAPSULE (ERGOCALCIFEROL 1.25MG) PO SCH (09:00)
--- NOTE | 2017-02-14 16:47 | MHIPNPDOC ---
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 Says after meeting with ex-girlfriend (Beckie) the day prior and being surprised by the breakup she was in the bathroom of their shared apartment sitting on the floor, she had grabbed a knife from the kitchen and placed it next to her. She sent her ex-girlfriend a text stating that " I wanted to and will look over you". For three weeks she states she had been very depressed, had SI/plan with pills and knife. This being her latest depressive episode, but had been "up" and "down" since Jun, when she had a cholecystectomy, due to a complication from bypass surgery, in October 2015. She states she has "highs" lasting 2 weeks at most, where you lack sleep, very high energy, spending above her means. 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 She says she continues to live with her ex-girlfriend and doesn' t want to live with her family, due to her alcoholic father being a "jerk" and for "logistical" reasons. She denies any AVH, delusions, paranoia, but admits to labile mood. Interval History 02/14/17: Denies SI/HI, AVH. Says she has been visited by ex-girlfriend Beckie, mother, sister. Good appetite, slept well (9 hrs last night), energy is "good". Yesterday went to both groups yesterday and today: Painting, music and meditation groups and communication/depression lectures. Reports "mild" diarrhea when starting medications, no medication side effects of for last 3 days. Says her mood is "good" and is able to have a optimistic outlook. She says she is looking forward to starting work at [employer], mom has been in contact with her boss. Also says she looks forward to seeing friends/family again. VITAL SIGNS: See below. NEW TEST RESULTS: None, EKG on Tuesday CURRENT MEDICATIONS: See below. MENTAL STATUS EXAMINATION: Patient is a 26-year old female, who is NAD, cooperative, make good eye contact , in hospital clothes. Speech: Is normal rate, rhythm, tone, volume. Language skills are: Intact Thought processes including: linear/logical Thought content: Denies SI/HI, AVH, paranoia, delusion. Abstract reasoning, and computation: Good Description of associations: Good Description of abnormal or psychotic thoughts: Denies Judgment: Fair Insight: Good Orientation: A/O x3 Recent and remote memory: Intact Attention span and concentration: Intact Language: Appropriate Fund of knowledge: Average Mood: "Good" Affect: euthymic, mood congruent, smiles DIAGNOSES: 1. Bipolar Disorder I, mixed episode 2. Borderline Personality Disorder ASSESSMENT: Discussed common and rare side effects of medications. Discussed safety, impulsivity. Discussed living situation with ex-girlfriend, however, does not wish to live with Dad due to his mood swings and wants to stay in current living situation to be closer to work/more independent. Significant improvement since starting Abilify 2.5 mg PO BID and Seroquel 75 mg QHS. She says it helps with her sleep and she does not feel tired in the morning. She reports no side effects apart from one episode of "mild" diarrhea after starting medications. She is goal oriented, stating she is ready to leave and wants to "reconnect" with her friends and get back to her job. Denies current SI /plan. Says she feels "clearer in the head" and less "all over the place". MANAGEMENT PLAN: Continue medications, counselled on side effects. Continue individual/group therapy. Consider injection of Abilify Maintena for compliance/ control of mood symptoms. Was discussed with patient and wants to receive the medication. Continue to monitor daily for safety. TIME SPENT: 30 minutes. Vital Signs Vital Signs Date Time Temp Pulse Resp B/P (MAP) Pulse Ox O2 Delivery O2 Flow Rate FiO2 02/14/17 07:15 96.7 58 19 115/57 (76) Room Air 02/11/17 03:25 98 Current Medications Current Medications Acetaminophen (Tylenol Tab) 650 mg Q6HP PRN PO HEADACHE or DISCOMFORT Last administered on 02/11/17t 21:03; Start 02/11/17 at 00:45; Stop 03/13/17 at 00:44 Al Hydrox/Mg Hydrox/Simethicone (Mylanta) 30 ml Q4HP PRN PO HEARTBURN/ INDIGESTION; Start 02/11/17 at 00:45; Stop 03/13/17 at 00:44 Aripiprazole (AbiLIFY) 2.5 mg BID PO Last administered on 02/14/17 08:34; Start 02/11/17 at 09:00; Stop 03/13/17 at 08:59 Home Med (Med Rec Complete!) ASDIRECTED XX ; Start 02/11/17 at 00:00; Stop 02/11/17 at 00:00; Status DC Magnesium Hydroxide (Milk Of Magnesia) 30 ml DAILYPRN PRN PO CONSTIPATION; Start 02/11/17 at 00:45; Stop 03/13/17 at 00:44 Miscellaneous (Unresolved Patient Own Med Order) SEE LABEL COMMENTS UNRESOLVED XX ; Start 02/11/17 at 00:01; Stop 02/11/17 at 14:08; Status DC Patient Own Medication (Patient'S Own Med) 1 ea BID PO Last administered on 08:34; Start 02/11/17 at 21:00; Stop 03/13/17 at 20:59 Quetiapine Fumarate (SEROquel) 75 mg QHS PO Last administered on 02/13/17 21: 39; Start 02/11/17 at 21:00; Stop 03/13/17 at 20:59 Trazodone HCl (Desyrel) 50 mg QHSP PRN PO INSOMNIA; Start 02/11/17 at 00:45; Stop 03/13/17 at 00:44; Status Cancel Vitamin D (Drisdol) 50,000 units Mo@09 PO Last administered on 02/14/17 09:44 ; Start 02/14/17 at 09:00; Stop 03/16/17 at 08:59 Allergies Coded Allergies: NSAIDs (Unverified Allergy, Severe, GASTRIC BYPASS, 02/10/17) MANSI FUENTES PGY-1 Feb 14, 2017 16:47
[2017-02-14 18:00] VITALS: BP 135/79
[2017-02-14] MEDS: QUEtiapine FUMARATE 25 MG TAB PO SCH (21:50)
[2017-02-15 06:56] VITALS: BP 139/79
[2017-02-15] MEDS: [UNRECOGNIZED DRUG - OTHER] PO SCH (07:59)
[2017-02-15] MEDS ORDERED: ABIL400I IM (09:14)
[2017-02-15] MEDS ORDERED: ARIP5TA PO (09:14)
[2017-02-15] MEDS ORDERED: QUET1TAB7 PO (09:14)
[2017-02-15] MEDS ORDERED: ARIPiprazole MONOHYDRATE 400 MG INJ (ABILIFY)(J0401) IM ONE (09:15)
--- NOTE | 2017-02-15 13:40 | MHDSPDOC ---
[facility] Discharge Summary Discharge Summary DATE OF ADMISSION: Feb 11, 2017 at 00:33 DATE OF DISCHARGE: Feb 15, 2017 at 10:50 DISCHARGE DIAGNOSES: 1. Bipolar Disorder I, mixed episode 2. 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 Says after meeting with ex-girlfriend ( Beckie) the day prior and being surprised by the breakup she was in the bathroom of their shared apartment sitting on the floor, she had grabbed a knife from the kitchen and placed it next to her. She sent her ex-girlfriend a text stating that " I wanted to and will look over you". For three weeks she states she had been very depressed, had SI/plan with pills and knife. This being her latest depressive episode, but had been "up" and "down" since Jun, when she had a cholecystectomy, due to a complication from bypass surgery , in October 2015. She states she has "highs" lasting 2 weeks at most, where you lack sleep, very high energy, spending above her means. 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 She says she continues to live with her ex- girlfriend and doesn't want to live with her family, due to her alcoholic father being a "jerk" and for "logistical" reasons. She denies any AVH, delusions, paranoia, but admits to labile mood. CONSULTANTS INVOLVED: none TREATMENT AND PROGRESS ON THE UNIT : 02/10/17 was brought into the [facility] ED for SI after a break up with her girlfriend. She was cleared medically by the ED, labs ordered but not limited to BMP, CBC, Liver profile, TSH, Vitamin D, Urine toxicology screen (positive for cannabinoids). Upon arriving on the unit she assessed daily for vital signs, suicide risk evaluation, sleep evaluation, and received individual and group therapy. She attended most sessions. On 02/11/17 first patient interview she circumstantial, had pressured speech, was anxious and endorsed depression with suicidal ideation without current plan. She described manic episodes lasting approximately 2 weeks; where she was energized/ overly talkative, would go on uncontrolled shopping sprees and quit her job, and depressive episodes where she would be in bed all day and avoid seeing people and call in to miss work. She was diagnosed with Bipolar disorder I and Borderline Personality Disorder. We started her on Abilify 2.5 mg PO BID for Bipolar Disorder and Quetiapine Fumarate 3 x 25 mg PO QHS for insomnia. An EKG was done prior to starting medications to rule out any cardiac abnormalities. On 02/14/17 her condition improved, she was euthymic, her thought process was linear and logical, she denied SI/HI,AVH, manic symptoms or depressed symptoms. She says she was visited by her r ex-girlfriend for support. She denied having any common or rare medication side effects apart from some mild diarrhea on the first day of starting the medications. On 02/15/17 she was given her first injection of Abilify Maintena 400 mg IM Q30D. She was told on discharge she must continue her oral Abilify for at least two weeks until she will be able to continue on the injections solely. She also wanted to continue Quetiapine Fumarate 3 x 25 mg PO QHS for insomnia and she feels this helps her be more alert during the day. She told us she is ready to leave and she was counselled regarding her infrequent casual cannabis use/medication side effects to look out for and safety/how to reach out if she has any suicidal ideations/ plans. She agreed to attend her f/u appointments upon discharge and denied any SI/HI or psychotic symptoms at that time. HOSPITAL COURSE: see above DISCHARGE ASSESSMENT: Patient denies SI/HI, AVH, delusion, paranoia, manic or depressive symptoms. She appears to be in a good mood without anxiety and ready to move back in with girlfriend. Safety was discussed and means of reaching out if she has suicidal thoughts. She denies any common or rare medication side effects. MENTAL STATUS EXAMINATION ON DISCHARGE: Patient is a 26-year old female, who is in NAD, in hospital clothing, cooperative, good eye contact, BMI 37.1. Speech is linear, logical Language skills are Good Thought processes including: Intact Thought content: Denies SI/HI,AVH, paranoia, delusions Abstract reasoning, and computation: Good Description of associations: Good Description of abnormal or psychotic thoughts: None Judgment: fair Insight: fair Orientation to person, place, time Recent and remote memory: Intact Attention span and concentration: Intact Language: Appropriate Fund of knowledge: Normal Mood: "good" Affect: Euthymic, appropriate, mood congruent MEDICATIONS ON DISCHARGE: - Abilify 2.5 mg PO BID for Bipolar Disorder - Abilify Maintena 400 mg IM Q30D for Bipolar Disorder - Quetiapine Fumarate 3 x 25 mg PO QHS for insomnia PLAN/FOLLOWUP ARRANGEMENTS: See below. Patient says she will f/u with outpatient treatment. Follow Up Care Education Label * Mental Health Appt 1 * Mental Health Gnosticism * Established With This Provider Yes * Therapist EMILIA * Date Feb 15, 2017 * Time 11:00 * Address of Clinic or Practice [address] [place] [address] * Follow Up Care Education Label * Mental Health Appt 2 * Mental Health Gnosticism * Established With This Provider Yes * Therapist DR. CRUM * Date Mar 17, 2017 * Time 10:30 * * Additional information The amount of time spent in the coordination of care for this patient was approximately 40 minutes. Vital Signs/I&Os Vital Signs Date Time Temp Pulse Resp B/P (MAP) Pulse Ox O2 Delivery O2 Flow Rate FiO2 02/15/17 06:56 97.2 74 16 139/79 (99) Room Air 02/11/17 03:25 98 Medications Scheduled Aripiprazole (Aripiprazole) 5 Mg Tab, 2.5 MG PO BID for BIPOLAR, #7 Aripiprazole Monohydrate (Abilify Maintena) 400 Mg Inj, 400 MG IM ONCE for BIPOLAR, #1 Quetiapine Fumerate (Quetiapine Fumarate) 25 Mg Tab, 75 MG PO QHS for INSOMNIA, #21 [Bariatric Multi] , 1 CHEW PO DAILY, (Reported) Allergies Coded Allergies: NSAIDs (Unverified Allergy, Severe, GASTRIC BYPASS, 02/10/17) MANSI FUENTES PGY-1 Feb 15, 2017 13:40
== END 2017-02-15 10:50 | disposition home or self-care (01) | DRG 753 ==
LOC: M ED 21:56 → M ED INP 02-11 00:33 → M PSY 02-11 03:33
PROVIDERS: ADMIT Psychiatry & Neurology Psychiatry; ATTEND Psychiatry & Neurology Psychiatry
DX: F31.60 Bipolar disorder, current episode mixed, unspecified (principal); E66.9 Obesity, unspecified; F60.3 Borderline personality disorder; Z98.84 Bariatric surgery status; Z88.6 Allergy status to analgesic agent; Z68.37 Body mass index [BMI] 37.0-37.9, adult

== ENCOUNTER 2017-05-23 21:11 | Emergency (ER) | payer BC, OTHER, SELFPAY ==
[2017-05-23] MEDS: KETOROLAC 30 MG/ML VIAL (J1885) IV (23:15)
[2017-05-23] MEDS: ONDANSETRON 4MG/2ML VIAL (J2405) IV (23:15)
[2017-05-24 01:00] LABS: ANION GAP 7 MEQ/L (8-16); BLOOD UREA NITROGEN 15 MG/DL (7-18); CARBON DIOXIDE LEVEL 24 MEQ/L (21-32); CHLORIDE LEVEL 107 MEQ/L (98-107); CREATININE FOR GFR 0.83 MG/DL (0.55-1.02); GLOMERULAR FILTRATION RATE > 60.0 (>60); GLUCOSE, FASTING 91 MG/DL (70-105); POTASSIUM SERUM 4.5 MEQ/L (3.5-5.1); SODIUM LEVEL 138 MEQ/L (136-145)
[2017-05-24 01:05] LABS: WHITE BLOOD COUNT 11.9 10^3/uL (4.0-10.0)
[2017-05-24 01:06] LABS: HEMATOCRIT 42.2 % (36.0-47.0); MEAN CORPUSCULAR HEMOGLOBIN 26.8 pg (27.0-33.0); MEAN CORPUSCULAR HGB CONC 33.2 g/dl (32.0-36.5); MEAN CORPUSCULAR VOLUME 80.7 fl (80.0-96.0); RED BLOOD COUNT 5.23 10^6/uL (4.00-5.40); RED CELL DISTRIBUTION WIDTH 13.9 % (11.5-14.5)
[2017-05-24 01:07] LABS: PLATELET COUNT, AUTOMATED 311 10^3/uL (150-450)
[2017-05-24 01:09] LABS: BASO % 0.8 % (0.0-1.0); EOS % 0.6 % (0.0-3.0); IMMATURE GRANULOCYTE % 0.3 % (0-0); LYMPH % 27.6 % (24.0-44.0); MONO % 6.2 % (0.0-5.0); NEUTROPHILS % 64.5 % (36.0-66.0)
[2017-05-24 01:10] LABS: EOS # 0.1 10^3/uL (0.0-0.50); MONO # 0.7 10^3/uL (0.0-0.8); NEUTROPHILS # 7.7 10^3/uL (1.8-7.7)
[2017-05-24] MEDS: ONDANSETRON 4 MG ORAL DISINTEGRATING TAB (S0181) PO (01:45)
[2017-05-24] MEDS: NITROFURANTOIN (MACROBID) 100 MG CAP PO (01:45)
[2017-05-24] MEDS: OXYCODONE/APAP 5MG/325MG(BULK FOR ED) 1 TABLET PO (01:45)
[2017-05-24] MEDS: TAMSULOSIN 0.4 MG CAP PO (01:45)
[2017-05-24] MEDS: PHENAZOPYRIDINE 100 MG TAB PO (01:45)
[2017-05-24 04:55] LABS: KETONE, URINE AUTO RFX TRACE mg/dL (NEGATIVE); LEUKOCYTE ESTERASE UR AUTO RFX NEGATIVE (NEGATIVE); NITRITE, URINE AUTO RFX NEGATIVE (NEGATIVE); SPECIFIC GRAVITY UR AUTO RFX 1.026 (1.002-1.035)
[2017-05-24 04:56] LABS: MUCUS, URINE RFX SMALL (NEGATIVE); RBC, URINE AUTO RFX 704 /HPF (0-3); SQUAM EPITHELIAL CELL UR AURFX 3 /HPF (0-6); WBC, URINE AUTO RFX 8 /HPF (0-3)
[2017-05-24 04:58] LABS: CALCIUM OXALATE CRYSTALS RFX SMALL
== END 2017-05-24 01:56 | disposition home or self-care (01) ==
LOC: M ED 21:11
DX: N20.1 Calculus of ureter (principal); R31.9 Hematuria, unspecified; E66.9 Obesity, unspecified; F41.9 Anxiety disorder, unspecified; F33.9 Major depressive disorder, recurrent, unspecified; Z79.899 Other long term (current) drug therapy; Z88.8 Allergy status to other drugs, medicaments and biological substances; Z87.42 Personal history of other diseases of the female genital tract; Z98.0 Intestinal bypass and anastomosis status; Z98.890 Other specified postprocedural states
CPT/HCPCS: J2405

== ENCOUNTER → 2018-01-25 | Outpatient (REF) | payer OTHER | LOC: M SFHCLERA 20:14 | DX: J00 Acute nasopharyngitis [common cold] (principal); R11.10 Vomiting, unspecified ==

== ENCOUNTER 2023-08-09 08:37 | Inpatient (IN) | payer OTHER ==
[~2023-08-09] VITALS: Ht 165.1 cm; Wt 107.9 kg
[~2023-08-09 08:37] MED LIST: ABIL400I IM; ARIP1TAB6 PO; BARIATRIC MULTI PO; FERR325T3 PO; FLOM0.4C39 PO; MACR100C43 PO; MULT1TAB18 PO; PERC5TAB12 PO; PYRI1TAB5 PO; QUET1TAB17 PO; ZOFR4TAB14 PO
[2023-08-09] MEDS ORDERED: HOME MED LIST COMPLETE! XX SCH (09:25)
[2023-08-09 09:43] LABS: HEMATOCRIT 33.4 % (36.0-47.0); HEMOGLOBIN 9.9 g/dl (12.0-15.5); MEAN CORPUSCULAR HEMOGLOBIN 19.3 pg (27.0-33.0); MEAN CORPUSCULAR HGB CONC 29.6 g/dl (32.0-36.5); MEAN CORPUSCULAR VOLUME 65.1 fl (80.0-96.0); PLATELET COUNT, AUTOMATED 391 10^3/uL (150-450); RED BLOOD COUNT 5.13 10^6/uL (4.00-5.40); WHITE BLOOD COUNT 6.1 10^3/uL (4.0-10.0)
[2023-08-09 10:07] LABS: BARBITURATES URINE NEGATIVE (NEGATIVE); COCAINE METABOLITE URINE NEGATIVE (NEGATIVE); METHADONE URINE NEGATIVE (NEGATIVE); OPIATES URINE NEGATIVE (NEGATIVE)
[2023-08-09 10:08] LABS: AMPHETAMINES LEVEL URINE NEGATIVE (NEGATIVE); BENZODIAZEPINES URINE NEGATIVE (NEGATIVE); CANNABINOIDS URINE NEGATIVE (NEGATIVE); PHENCYCLIDINE URINE NEGATIVE (NEGATIVE)
[2023-08-09 10:09] LABS: ETHYL ALCOHOL (ETHANOL) < 0.003 % (0.000-0.010)
[2023-08-09 10:10] LABS: SALICYLATE LEVEL < 3.0 MG/DL (<30)
[2023-08-09 10:11] LABS: ALBUMIN 3.8 G/DL (3.2-5.2); ALKALINE PHOSPHATASE 89 U/L (46-116); ALT/SGPT 13 U/L (7.0-40); AST/SGOT 18 U/L (<34); BILIRUBIN,DIRECT 0.3 MG/DL (<0.4); BILIRUBIN,TOTAL 0.9 MG/DL (0.3-1.2); BLOOD UREA NITROGEN 8 MG/DL (9-23); CALCIUM LEVEL 8.6 MG/DL (8.5-10.1); CARBON DIOXIDE LEVEL 24 MMOL/L (20-31); CHLORIDE LEVEL 106 MMOL/L (98-107); CREATININE FOR GFR 0.74 MG/DL (0.55-1.30); GLOMERULAR FILTRATION RATE > 60.0 (>60); GLUCOSE, FASTING 96 MG/DL (60-100); SODIUM LEVEL 139 MMOL/L (136-145); TOTAL PROTEIN 6.7 G/DL (5.7-8.2)
[2023-08-09 10:12] LABS: HCG, SERUM QUALITATIVE NEGATIVE (NEGATIVE)
[2023-08-09 10:13] LABS: THYROID STIMULATING HORMONE 1.065 uIU/ML (0.55-4.78)
[2023-08-09] MEDS ORDERED: MOM 30ML SUSPENSION UDC PO PRN (12:35)
[2023-08-09] MEDS ORDERED: diphenhydrAMINE 25MG CAP PO PRN (12:35)
[2023-08-09] MEDS: ACETAMINOPHEN TAB 650MG DOSE (2X325MG) PO PRN (15:45)
[2023-08-09 15:54] VITALS: BP 113/66; TEMP 98.1
[2023-08-09] MEDS: traZODone 50 MG TAB PO PRN (20:46)
[2023-08-10 05:55] VITALS: BP 116/57; TEMP 98.2; O2SAT 99
[2023-08-10] MEDS: SERTRALINE HCL 25 MG TABLET PO SCH (11:40)
[2023-08-10] MEDS: OLANZapine ORAL DISINTEGRATING TAB 5MG PO PRN (12:54)
[2023-08-10 15:02] LABS: PERCENT SATURATION 3.2 % (13.2-45.0)
[2023-08-10 15:03] LABS: FERRITIN 2.1 NG/ML (7.3-270.7)
[2023-08-10 15:05] LABS: FOLATE 18.61 NG/ML (>5.4)
[2023-08-10 17:17] VITALS: BP 131/63; TEMP 98
[2023-08-10] MEDS: FERROUS SULFATE 300MG/5ML UDC LIQUID PO SCH (21:36)
[2023-08-11 06:23] VITALS: BP 105/63; TEMP 98.1; O2SAT 96
[2023-08-11] MEDS ORDERED: QUEtiapine FUMARATE 25 MG TAB PO PRN (10:10)
[2023-08-11] MEDS: MAALOX 30 ML SUSP *UDC PO PRN (11:48)
[2023-08-11 16:34] VITALS: BP 120/56; TEMP 97.4; O2SAT 99
[2023-08-11] MEDS: QUEtiapine FUMARATE 25 MG TAB PO SCH (20:22)
[2023-08-12 06:48] VITALS: BP 117/57; TEMP 99; O2SAT 100
[2023-08-12] MEDS ORDERED: FERR5MLUD PO (11:20)
[2023-08-12] MEDS ORDERED: TRAZ-252 PO (11:20)
[2023-08-12] MEDS ORDERED: QUET1TAB17 PO ×2 (11:20)
[2023-08-12] MEDS ORDERED: SERT25TA21 PO (11:20)
== END 2023-08-12 16:18 | disposition home or self-care (01) | DRG 881 ==
LOC: M ED 08:37 → M ED INP 12:35 → M PSY 14:55
PROVIDERS: ADMIT Student in an Organized Health Care Education/Training Program; ATTEND Student in an Organized Health Care Education/Training Program
DX: F32.9 Major depressive disorder, single episode, unspecified (principal); R45.851 Suicidal ideations; F60.89 Other specific personality disorders; Z81.1 Family history of alcohol abuse and dependence; Z81.8 Family history of other mental and behavioral disorders; Z56.5 Uncongenial work environment; Z98.84 Bariatric surgery status; D50.9 Iron deficiency anemia, unspecified; Z90.49 Acquired absence of other specified parts of digestive tract; E66.9 Obesity, unspecified; Z68.39 Body mass index [BMI] 39.0-39.9, adult; F41.9 Anxiety disorder, unspecified; F43.20 Adjustment disorder, unspecified; Z88.6 Allergy status to analgesic agent

== ENCOUNTER → 2023-09-10 | Outpatient (CLI) | payer OTHER ==
[~2023-09-10] MED LIST changes: +FERR5MLUD PO; +SERT25TA21 PO; +TRAZ-252 PO
[2023-09-10 11:41] LABS: HEMATOCRIT 33.9 % (36.0-47.0); MEAN CORPUSCULAR HEMOGLOBIN 19.2 pg (27.0-33.0); MEAN CORPUSCULAR HGB CONC 29.5 g/dl (32.0-36.5); MEAN CORPUSCULAR VOLUME 64.9 fl (80.0-96.0); PLATELET COUNT, AUTOMATED 435 10^3/uL (150-450); RED BLOOD COUNT 5.22 10^6/uL (4.00-5.40)
[2023-09-10 12:18] LABS: CHOLESTEROL RISK RATIO 3.57 (<5); HDL CHOLESTEROL 50.1 MG/DL (>40); LDL CHOLESTEROL 111.7 MG/DL (<100); NON-HDL-C 128.9 MG/DL; PERCENT SATURATION 3.2 % (13.2-45.0)
[2023-09-10 12:20] LABS: FERRITIN 2.1 NG/ML (7.3-270.7); FOLATE 14.5 NG/ML (>5.4)
== END ==
LOC: M LAB 11:07
PROVIDERS: ATTEND Physician Assistant
DX: D50.9 Iron deficiency anemia, unspecified (principal); Z00.00 Encounter for general adult medical examination without abnormal findings

== ENCOUNTER → 2023-10-18 | Outpatient (CLI) | payer OTHER ==
[2023-10-18 14:54] LABS: BASO # 0.1 10^3/uL (0.0-0.2); BASO % 1.6 % (0.0-1.0); EOS # 0.1 10^3/uL (0.0-0.5); EOS % 2.2 % (0.0-3.0); HEMATOCRIT 34.8 % (36.0-47.0); LYMPH # 2.1 10^3/uL (1.5-5.0); LYMPH % 34.3 % (24.0-44.0); MEAN CORPUSCULAR HEMOGLOBIN 19.5 pg (27.0-33.0); MEAN CORPUSCULAR HGB CONC 28.7 g/dl (32.0-36.5); MEAN CORPUSCULAR VOLUME 67.8 fl (80.0-96.0); MONO # 0.4 10^3/uL (0.0-0.8); MONO % 6.3 % (2.0-8.0); NEUTROPHILS # 3.5 10^3/uL (1.5-8.5); NEUTROPHILS % 55.4 % (36.0-66.0); PLATELET COUNT, AUTOMATED 368 10^3/uL (150-450); RED BLOOD COUNT 5.13 10^6/uL (4.00-5.40); WHITE BLOOD COUNT 6.2 10^3/uL (4.0-10.0)
== END ==
LOC: M PLALAB 09:36
PROVIDERS: ATTEND Internal Medicine Hematology
DX: E61.1 Iron deficiency (principal)

== ENCOUNTER 2023-11-03 12:36 | Outpatient (CLI) | payer OTHER ==
[~2023-11-03] VITALS: Ht 165.1 cm; Wt 109.1 kg
[~2023-11-03 12:36] MED LIST changes: +ALBUTEROL SULFATE 2.5MG/0.5ML INH NEB SOLN INH PRN; +EPINEPHrine INJ 1 MG/ML 1ML AMP IM PRN; +diphenhydrAMINE 50MG/ML VIAL IV PRN; +methylPREDNISolone 125MG 2ML VIAL IV PRN
[2023-11-03 12:55] VITALS: BP 134/76; O2SAT 98
[2023-11-03] MEDS ORDERED: NS 1,000 ML IV SCH (13:00)
[2023-11-03] MEDS: FERRIC CARBOXYMALTOSE INJ 750 MG in NS 250 ML (>50kg) IV ONE (13:01)
[2023-11-03 14:15] VITALS: BP 124/69; O2SAT 100
== END 2023-11-03 14:15 | disposition home or self-care (01) ==
LOC: M INFU 12:36
PROVIDERS: ATTEND Internal Medicine Hematology
DX: D50.9 Iron deficiency anemia, unspecified (principal); Z88.8 Allergy status to other drugs, medicaments and biological substances
CPT/HCPCS: 96365; J1439

== ENCOUNTER 2023-11-14 13:00 | Outpatient (CLI) | payer OTHER ==
[~2023-11-14] VITALS: Ht 165.1 cm; Wt 114.0 kg
[2023-11-14 13:00] VITALS: BP 124/68; O2SAT 100
[~2023-11-14 13:00] MED LIST changes: +NS 1,000 ML IV SCH
[2023-11-14] MEDS: FERRIC CARBOXYMALTOSE INJ 750 MG in NS 250 ML (>50kg) IV ONE (13:09)
[2023-11-14 14:20] VITALS: BP 128/70; O2SAT 100
== END 2023-11-14 14:40 ==
LOC: M INFU 13:00
PROVIDERS: ATTEND Internal Medicine Hematology
DX: D50.9 Iron deficiency anemia, unspecified (principal); Z88.8 Allergy status to other drugs, medicaments and biological substances
CPT/HCPCS: 96365; J1439

== ENCOUNTER 2024-05-17 21:09 | Emergency (ER) | payer OTHER ==
[~2024-05-17] VITALS: Ht 165.1 cm; Wt 109.3 kg
[~2024-05-17 21:09] MED LIST changes: -ALBUTEROL SULFATE 2.5MG/0.5ML INH NEB SOLN INH PRN; -EPINEPHrine INJ 1 MG/ML 1ML AMP IM PRN; -NS 1,000 ML IV SCH; -diphenhydrAMINE 50MG/ML VIAL IV PRN; -methylPREDNISolone 125MG 2ML VIAL IV PRN
[2024-05-17 21:18] VITALS: BP 131/74; TEMP 97.9; O2SAT 97
== END 2024-05-17 23:19 | disposition left against medical advice (07) ==
LOC: M ED 21:09
DX: Z53.21 Procedure and treatment not carried out due to patient leaving prior to being seen by health care provider (principal)

== ENCOUNTER → 2024-06-03 | Outpatient (CLI) | payer OTHER ==
[2024-06-03 10:38] LABS: HEMATOCRIT 45.5 % (36.0-47.0); HEMOGLOBIN 15.3 g/dl (12.0-15.5); MEAN CORPUSCULAR HEMOGLOBIN 28.3 pg (27.0-33.0); MEAN CORPUSCULAR HGB CONC 33.6 g/dl (32.0-36.5); MEAN CORPUSCULAR VOLUME 84.3 fl (80.0-96.0); PLATELET COUNT, AUTOMATED 305 10^3/uL (150-450); WHITE BLOOD COUNT 6.2 10^3/uL (4.0-10.0)
[2024-06-03 11:07] LABS: FERRITIN 33.2 NG/ML (7.3-270.7)
== END ==
LOC: M LAB 10:13
PROVIDERS: ATTEND Internal Medicine Hematology
DX: D64.9 Anemia, unspecified (principal)

== ENCOUNTER 2024-06-19 09:17 | Outpatient (CLI) | payer OTHER ==
[~2024-06-19] VITALS: Ht 165.1 cm; Wt 104.0 kg
[~2024-06-19 09:17] MED LIST changes: +ALBUTEROL SULFATE 2.5MG/0.5ML INH NEB SOLN INH PRN; +EPINEPHrine INJ 1 MG/ML 1ML AMP IM PRN; +diphenhydrAMINE 50MG/ML VIAL IV PRN; +methylPREDNISolone 125MG 2ML VIAL IV PRN
[2024-06-19 09:30] VITALS: BP 115/79; O2SAT 100
[2024-06-19] MEDS: IRON SUCROSE 300 MG in NS 250 ML OVER 90 MIN. IV ONE (09:37)
[2024-06-19 11:15] VITALS: BP 124/69; O2SAT 100
== END 2024-06-19 11:20 ==
LOC: M INFU 09:17
PROVIDERS: ATTEND Internal Medicine Hematology
DX: D64.9 Anemia, unspecified (principal); Z88.6 Allergy status to analgesic agent
CPT/HCPCS: 96365; 96366; J1756

== ENCOUNTER 2024-07-03 13:05 | Outpatient (CLI) | payer OTHER ==
[2024-07-03 13:17] VITALS: BP 160/72; O2SAT 97
[2024-07-03] MEDS: IRON SUCROSE 300 MG in NS 250 ML OVER 90 MIN. IV ONE (13:27)
== END 2024-07-03 15:15 ==
LOC: M INFU 13:05
PROVIDERS: ATTEND Internal Medicine Hematology
DX: D64.9 Anemia, unspecified (principal); Z88.6 Allergy status to analgesic agent
CPT/HCPCS: 96365; 96366; J1756